=== PATIENT | male | born 1950 | race Caucasian/White ===

== ENCOUNTER 2021-09-26 20:50 | Inpatient (IN) ==
[2021-09-26 21:28] LABS: Basophils # 0.1 10*3/uL (0.0-0.2); Basophils % 0.4 % (0.0-0.8); Eosinophils # 0.1 10*3/uL (0.0-0.87); Eosinophils % 0.5 % (0.00-10.9); Hematocrit 36.8 VOL% (42.0-52.0); Hemoglobin 11.8 GM/DL (14.0-18.0); Immature Granulocytes % 0.7 %; Immature Granulocytes Absolute 0.12 #; Lymphocytes # 1.3 10*3/uL (1.4-4.0); Mean Corpuscular HGB Conc 32.1 GM/DL (32-36); Mean Corpuscular Volume 94.6 FL (87-102); Monocytes % 6.8 % (1.7-12.7); Neutrophils % 83.6 % (38.7-73.9); Platelet Count 357 T/CUMM (130-400); Red Blood Count 3.89 MC/CUMM (3.8-5.5); Red Cell Distribution Width 13.9 % (9.3-17.3); White Blood Count 16.8 T/CUMM (4-12)
[2021-09-26] MEDS ORDERED: ALBUTEROL/IPRATROPIUM 3 ML NEB RESP TX STA (21:35)
[2021-09-26 21:48] LABS: Albumin 2.7 G/DL (3.4-5.0); Bilirubin,Total 0.5 MG/DL (0.20-1.00); Calcium 8.7 MG/DL (8.5-10.1); Osmolality,Calculated 286.1 MOS/KG (273-304); Potassium 3.7 MMOL/L (3.5-5.1); Total Protein 6.3 G/DL (6.4-8.2)
[2021-09-26] MEDS ORDERED: hydrALAZINE 20 MG/1 ML VIAL IV STA (22:19)
[2021-09-26] MEDS ORDERED: LEVOFLOXACIN INJ 750 MG/150 ML PREMIX IV STA (22:24)
[2021-09-26] MEDS ORDERED: SODIUM CHLORIDE 0.9% 1,000 ML IV STA (22:24)
[2021-09-26 22:48] LABS: Ferritin 261.4 ng/mL (26-388)
[2021-09-26] MEDS ORDERED: LABETALOL 20 MG/4 ML SYRINGE IV ONE (23:48)
[2021-09-27] MEDS ORDERED: LABETALOL 100 MG/20 ML VIAL IV STA (00:01)
[2021-09-27] MEDS ORDERED: SIMETHICONE CHEW 125 MG TABLET PO PRN (03:54)
[2021-09-27] MEDS ORDERED: ONDANSETRON 4 MG/2 ML VIAL IV PRN (03:54)
[2021-09-27] MEDS ORDERED: methylPREDNISolone SOD SUC 125 MG/2 ML VIAL IV STA (03:54)
[2021-09-27] MEDS ORDERED: GLUCAGON 1 MG VIAL IM PRN (03:54)
[2021-09-27] MEDS ORDERED: DEXTROSE 10% 250 ML BAG IV PRN (04:47)
[2021-09-27] MEDS: hydrALAZINE 20 MG/1 ML VIAL IV PRN ×2 (04:55→12:55)
[2021-09-27 05:27] LABS: Basophils # 0.1 10*3/uL (0.0-0.2); Basophils % 0.4 % (0.0-0.8); Eosinophils % 0.2 % (0.00-10.9); Hematocrit 31.9 VOL% (42.0-52.0); Hemoglobin 10.6 GM/DL (14.0-18.0); Immature Granulocytes % 0.9 %; Immature Granulocytes Absolute 0.12 #; Lymphocytes # 1.1 10*3/uL (1.4-4.0); Lymphocytes % 7.6 % (21.2-54.2); Mean Corpuscular HGB Conc 33.2 GM/DL (32-36); Mean Corpuscular Volume 92.5 FL (87-102); Mean Platelet Volume 10.2 FL (9.6-12.0); Monocytes % 8.4 % (1.7-12.7); Neutrophils % 82.5 % (38.7-73.9); Platelet Count 297 T/CUMM (130-400); Red Blood Count 3.45 MC/CUMM (3.8-5.5); Red Cell Distribution Width 13.8 % (9.3-17.3); White Blood Count 13.9 T/CUMM (4-12)
[2021-09-27] MEDS ORDERED: LABETALOL 20 MG/4 ML SYRINGE IV ONE ×3 (05:32→09:36)
[2021-09-27] MEDS: PIPERACILLIN/TAZOBACTAM 3,375 MG in SODIUM CHLORIDE 0.9% 100 ML IV SCH ×2 (05:35→14:45)
[2021-09-27 05:36] LABS: Bacteria,Urine Occasional /HPF (Few); Mucus,Urine Occasional /LPF (Occasional); RBC,Urine 1 /HPF (0-4)
[2021-09-27 05:37] LABS: Bilirubin,Urine Negative (Negative); Blood, Urine Negative (Negative); Glucose,Urine (UA) Negative (Negative); Ketones,Urine Negative (Negative); Nitrite,Urine Negative (Negative); Protein,Urine Negative; Urine Appearance Clear (Clear); Urine Color Yellow (Yellow); Urine Specific Gravity > 1.030 (1.001-1.035); Urine Urobilinogen 0.2 EU/DL (<2.0); Urine pH 5.5 (4.5-8.0)
[2021-09-27 05:49] LABS: Calcium 8.1 MG/DL (8.5-10.1); Osmolality,Calculated 282.4 MOS/KG (273-304); Potassium 3.5 MMOL/L (3.5-5.1)
[2021-09-27 06:46] LABS: ABG Base Excess -2.7 MMOL/L (-2.5-2.5); ABG HCO3 22.1 MMOL/L (20-26); ABG Oxygen Saturation 96.8 % (95-100); ABG PCO2 30.1 MM HG (35-48); ABG PO2 92.4 MM HG (80-95); ABG TCO2 18.3 MMOL/L (23-27)
[2021-09-27] MEDS: ALBUTEROL 2.5 MG/3 ML NEB RESP TX SCH ×3 (07:25→19:24)
[2021-09-27] MEDS ORDERED: ALBUTEROL/IPRATROPIUM 3 ML NEB RESP TX PRN (07:25)
[2021-09-27] MEDS: DOCUSATE SODIUM 100 MG CAPSULE PO SCH ×2 (08:44→21:48)
[2021-09-27] MEDS: FUROSEMIDE 40 MG/4 ML VIAL IV SCH (08:44)
[2021-09-27] MEDS: ASPIRIN EC 81 MG TABLET PO SCH (08:44)
[2021-09-27] MEDS: ENOXAPARIN 40 MG/0.4 ML SYRINGE SUBCUT SCH (08:45)
[2021-09-27] MEDS: PANTOPRAZOLE 40 MG TABLET PO SCH (08:45)
[2021-09-27] MEDS: METOPROLOL SUCCINATE XL 50 MG TABLET PO SCH (08:45)
[2021-09-27] MEDS: VANCOMYCIN INJ 1,250 MG in SODIUM CHLORIDE 0.9% 250 ML IV SCH ×2 (09:55→21:34)
[2021-09-27] MEDS: methylPREDNISolone SOD SUC 40 MG/1 ML VIAL IV SCH ×2 (12:13→21:37)
[2021-09-27 17:24] LABS: ABG Base Excess -0.3 MMOL/L (-2.5-2.5); ABG HCO3 24.2 MMOL/L (20-26); ABG Oxygen Saturation 99.3 % (95-100); ABG PCO2 31.1 MM HG (35-48); ABG PH 7.468 (7.35-7.45); ABG TCO2 19.7 MMOL/L (23-27)
[2021-09-27] MEDS: FLUTICASONE/SALMETEROL 250-50 DISKUS 14 DOSE INH SCH ×2 (18:44→21:37)
[2021-09-27] MEDS: ALPRAZolam 0.5 MG TABLET PO SCH (21:36)
[2021-09-27] MEDS: DILTIAZEM 30 MG TABLET PO SCH (21:37)
[2021-09-27] MEDS: LEVOFLOXACIN INJ 750 MG/150 ML PREMIX IV SCH (23:45)
[2021-09-28] MEDS: ALBUTEROL 2.5 MG/3 ML NEB RESP TX SCH ×2 (00:12→07:00)
[2021-09-28] MEDS: PIPERACILLIN/TAZOBACTAM 3,375 MG in SODIUM CHLORIDE 0.9% 100 ML IV SCH ×2 (01:24→18:54)
[2021-09-28] MEDS: methylPREDNISolone SOD SUC 40 MG/1 ML VIAL IV SCH ×3 (03:22→21:08)
[2021-09-28 05:45] LABS: Basophils % 0.1 % (0.0-0.8); Hematocrit 32.3 VOL% (42.0-52.0); Hemoglobin 10.3 GM/DL (14.0-18.0); Immature Granulocytes % 0.7 %; Immature Granulocytes Absolute 0.12 #; Lymphocytes # 0.8 10*3/uL (1.4-4.0); Lymphocytes % 4.2 % (21.2-54.2); Mean Corpuscular HGB Conc 31.9 GM/DL (32-36); Mean Corpuscular Volume 93.9 FL (87-102); Mean Platelet Volume 10.3 FL (9.6-12.0); Monocytes % 5.2 % (1.7-12.7); Neutrophils % 89.8 % (38.7-73.9); Platelet Count 278 T/CUMM (130-400); Red Blood Count 3.44 MC/CUMM (3.8-5.5); White Blood Count 17.7 T/CUMM (4-12)
[2021-09-28 06:09] LABS: Calcium 8.6 MG/DL (8.5-10.1); Osmolality,Calculated 288.3 MOS/KG (273-304); Potassium 3.5 MMOL/L (3.5-5.1)
[2021-09-28 06:31] LABS: Lymphocytes 4 % (20-55); Platelet Estimate Normal; Segmented Neutrophils 93 % (50-85); Total Cells Counted 100
[2021-09-28] MEDS: ENOXAPARIN 40 MG/0.4 ML SYRINGE SUBCUT SCH (09:47)
[2021-09-28] MEDS: FUROSEMIDE 40 MG/4 ML VIAL IV SCH (09:47)
[2021-09-28] MEDS: FLUTICASONE/SALMETEROL 250-50 DISKUS 14 DOSE INH SCH ×2 (09:47→21:05)
[2021-09-28] MEDS: DILTIAZEM 30 MG TABLET PO SCH ×2 (09:50→21:03)
[2021-09-28] MEDS: ALPRAZolam 0.5 MG TABLET PO SCH ×2 (09:51→21:04)
[2021-09-28] MEDS: PANTOPRAZOLE 40 MG TABLET PO SCH (09:51)
[2021-09-28] MEDS: ASPIRIN EC 81 MG TABLET PO SCH (09:51)
[2021-09-28] MEDS: POTASSIUM CHLORIDE 20 MEQ TABLET PO SCH (09:52)
[2021-09-28] MEDS: METOPROLOL SUCCINATE XL 50 MG TABLET PO SCH (09:52)
[2021-09-28] MEDS: VANCOMYCIN INJ 1,250 MG in SODIUM CHLORIDE 0.9% 250 ML IV SCH ×2 (10:13→23:39)
[2021-09-28] MEDS: DOCUSATE SODIUM 100 MG CAPSULE PO SCH ×2 (10:14→21:09)
[2021-09-28 12:02] LABS: ABG Base Excess 0.8 MMOL/L (-2.5-2.5); ABG Oxygen Saturation 92.1 % (95-100); ABG PCO2 38.4 MM HG (35-48); ABG PH 7.424 (7.35-7.45); ABG PO2 66.5 MM HG (80-95); ABG TCO2 22.6 MMOL/L (23-27)
[2021-09-28] MEDS: LEVALBUTEROL 1.25 MG/3 ML NEB RESP TX SCH ×2 (14:51→18:00)
[2021-09-28] MEDS: LEVOFLOXACIN INJ 750 MG/150 ML PREMIX IV SCH (21:08)
[2021-09-29] MEDS: LEVALBUTEROL 1.25 MG/3 ML NEB RESP TX SCH ×2 (00:06→07:40)
[2021-09-29 04:26] LABS: ABG HCO3 24.1 MMOL/L (20-26); ABG Oxygen Saturation 81.5 % (95-100); ABG PCO2 36.3 MM HG (35-48); ABG PH 7.427 (7.35-7.45); ABG PO2 50.1 MM HG (80-95); ABG TCO2 21.6 MMOL/L (23-27); Allen Test Positive; Pt O2 Delivery Device Other
[2021-09-29] MEDS: PIPERACILLIN/TAZOBACTAM 3,375 MG in SODIUM CHLORIDE 0.9% 100 ML IV SCH ×4 (05:07→21:31)
[2021-09-29] MEDS: methylPREDNISolone SOD SUC 40 MG/1 ML VIAL IV SCH ×4 (05:08→22:59)
[2021-09-29 06:10] LABS: Basophils % 0.1 % (0.0-0.8); Hematocrit 31.5 VOL% (42.0-52.0); Hemoglobin 10.1 GM/DL (14.0-18.0); Immature Granulocytes Absolute 0.17 #; Lymphocytes # 0.7 10*3/uL (1.4-4.0); Mean Corpuscular HGB Conc 32.1 GM/DL (32-36); Mean Corpuscular Volume 94.3 FL (87-102); Mean Platelet Volume 10.3 FL (9.6-12.0); Monocytes % 5.7 % (1.7-12.7); Neutrophils % 89.2 % (38.7-73.9); Platelet Count 213 T/CUMM (130-400); Red Blood Count 3.34 MC/CUMM (3.8-5.5); Red Cell Distribution Width 14.1 % (9.3-17.3); White Blood Count 16.8 T/CUMM (4-12)
[2021-09-29 06:51] LABS: Calcium 8.5 MG/DL (8.5-10.1); Osmolality,Calculated 296.1 MOS/KG (273-304); Potassium 3.7 MMOL/L (3.5-5.1)
[2021-09-29 07:54] LABS: Lymphocytes 1 % (20-55); Segmented Neutrophils 96 % (50-85); Total Cells Counted 100
[2021-09-29 07:55] LABS: Anisocytosis 1+
[2021-09-29 07:56] LABS: Elliptocytes Few; Platelet Estimate Normal; Polychromasia Slight; Schistocytes Slight; Target Cells Few
[2021-09-29] MEDS: METOPROLOL SUCCINATE XL 50 MG TABLET PO SCH (09:35)
[2021-09-29] MEDS: DILTIAZEM 30 MG TABLET PO SCH ×3 (09:35→21:49)
[2021-09-29] MEDS: ALPRAZolam 0.5 MG TABLET PO SCH (09:36)
[2021-09-29] MEDS: ENOXAPARIN 40 MG/0.4 ML SYRINGE SUBCUT SCH (09:37)
[2021-09-29] MEDS: POTASSIUM CHLORIDE 20 MEQ TABLET PO SCH (09:37)
[2021-09-29] MEDS: FUROSEMIDE 40 MG/4 ML VIAL IV SCH ×2 (09:37→16:38)
[2021-09-29] MEDS: ASPIRIN EC 81 MG TABLET PO SCH (09:37)
[2021-09-29] MEDS: PANTOPRAZOLE 40 MG TABLET PO SCH (09:37)
[2021-09-29] MEDS: FLUTICASONE/SALMETEROL 250-50 DISKUS 14 DOSE INH SCH ×2 (09:38→21:34)
[2021-09-29] MEDS: DOCUSATE SODIUM 100 MG CAPSULE PO SCH ×2 (09:38→21:33)
[2021-09-29 10:49] LABS: ABG Base Excess 1.4 MMOL/L (-2.5-2.5); ABG HCO3 25.3 MMOL/L (20-26); ABG Oxygen Saturation 80.5 % (95-100); ABG PH 7.426 (7.35-7.45); ABG PO2 51.5 MM HG (80-95); ABG TCO2 23.2 MMOL/L (23-27)
[2021-09-29 12:15] LABS: Bacteria,Urine Occasional /HPF (Few); Hyaline Casts,Urine 6 /LPF (0-3); Mucus,Urine Occasional /LPF (Occasional); RBC,Urine 1 /HPF (0-4); Squamous Epithelial Cell,Urine Occasional /HPF (0-10)
[2021-09-29 12:16] LABS: Urine Appearance Clear (Clear); Urine Color Light Yellow (Yellow)
[2021-09-29 12:17] LABS: Glucose,Urine (UA) Negative (Negative); Ketones,Urine Negative (Negative); Protein,Urine Negative; Urine Specific Gravity 1.015 (1.001-1.035)
[2021-09-29 12:18] LABS: Bilirubin,Urine Negative (Negative); Blood, Urine Negative (Negative); Nitrite,Urine Negative (Negative); Urine Urobilinogen < 2.0 EU/DL (<2.0)
[2021-09-29] MEDS: VANCOMYCIN INJ 1,250 MG in SODIUM CHLORIDE 0.9% 250 ML IV SCH ×2 (12:41→21:35)
[2021-09-29] MEDS ORDERED: ALBUTEROL/IPRATROPIUM 3 ML NEB RESP TX SCH (13:00)
[2021-09-29] MEDS: hydrALAZINE 20 MG/1 ML VIAL IV PRN (15:21)
[2021-09-30] MEDS: methylPREDNISolone SOD SUC 40 MG/1 ML VIAL IV SCH ×4 (05:42→23:29)
[2021-09-30] MEDS: PIPERACILLIN/TAZOBACTAM 3,375 MG in SODIUM CHLORIDE 0.9% 100 ML IV SCH (05:42)
[2021-09-30 06:06] LABS: Basophils % 0.1 % (0.0-0.8); Hemoglobin 10.8 GM/DL (14.0-18.0); Immature Granulocytes % 1.1 %; Immature Granulocytes Absolute 0.16 #; Lymphocytes # 0.7 10*3/uL (1.4-4.0); Lymphocytes % 4.6 % (21.2-54.2); Mean Corpuscular HGB Conc 31.8 GM/DL (32-36); Mean Corpuscular Volume 95.5 FL (87-102); Mean Platelet Volume 10.3 FL (9.6-12.0); Monocytes % 5.4 % (1.7-12.7); Neutrophils % 88.8 % (38.7-73.9); Platelet Count 153 T/CUMM (130-400); Red Blood Count 3.56 MC/CUMM (3.8-5.5); White Blood Count 15.1 T/CUMM (4-12)
[2021-09-30 06:44] LABS: Band Neutrophils 2 % (0-10); Lymphocytes 4 % (20-55); Segmented Neutrophils 90 % (50-85); Total Cells Counted 100
[2021-09-30 06:45] LABS: Hypochromia 1+; Microcytosis 1+; Ovalocytes Slight; Platelet Estimate Adequate; Target Cells Slight
[2021-09-30 07:01] LABS: Calcium 8.6 MG/DL (8.5-10.1); Osmolality,Calculated 304.7 MOS/KG (273-304); Potassium 3.6 MMOL/L (3.5-5.1)
[2021-09-30] MEDS: MEROPENEM 500 MG in SODIUM CHLORIDE 0.9% 100 ML IV SCH ×3 (09:53→20:40)
[2021-09-30] MEDS: FUROSEMIDE 40 MG/4 ML VIAL IV SCH ×2 (09:53→17:16)
[2021-09-30] MEDS: ENOXAPARIN 40 MG/0.4 ML SYRINGE SUBCUT SCH (09:54)
[2021-09-30] MEDS: ASPIRIN EC 81 MG TABLET PO SCH (09:54)
[2021-09-30] MEDS: POTASSIUM CHLORIDE 20 MEQ TABLET PO SCH (09:54)
[2021-09-30] MEDS: METOPROLOL SUCCINATE XL 50 MG TABLET PO SCH (09:55)
[2021-09-30] MEDS: DOCUSATE SODIUM 100 MG CAPSULE PO SCH ×2 (09:55→20:41)
[2021-09-30] MEDS: DILTIAZEM 30 MG TABLET PO SCH ×2 (09:55→20:39)
[2021-09-30] MEDS: PANTOPRAZOLE 40 MG TABLET PO SCH (09:55)
[2021-09-30] MEDS: FLUTICASONE/SALMETEROL 250-50 DISKUS 14 DOSE INH SCH ×2 (09:56→20:41)
[2021-10-01] MEDS: MEROPENEM 500 MG in SODIUM CHLORIDE 0.9% 100 ML IV SCH ×4 (03:26→22:15)
[2021-10-01 04:08] LABS: ABG Base Excess 6.7 MMOL/L (-2.5-2.5); ABG HCO3 30.4 MMOL/L (20-26); ABG Oxygen Saturation 94.3 % (95-100); ABG PCO2 40.9 MM HG (35-48); ABG PH 7.484 (7.35-7.45); ABG PO2 73.5 MM HG (80-95); ABG TCO2 27.5 MMOL/L (23-27)
[2021-10-01] MEDS: methylPREDNISolone SOD SUC 40 MG/1 ML VIAL IV SCH ×3 (04:08→16:55)
[2021-10-01 04:36] LABS: Basophils % 0.1 % (0.0-0.8); Hematocrit 32.7 VOL% (42.0-52.0); Hemoglobin 10.6 GM/DL (14.0-18.0); Immature Granulocytes % 1.1 %; Immature Granulocytes Absolute 0.14 #; Lymphocytes # 0.6 10*3/uL (1.4-4.0); Lymphocytes % 4.5 % (21.2-54.2); Mean Corpuscular HGB Conc 32.4 GM/DL (32-36); Mean Corpuscular Volume 93.4 FL (87-102); Mean Platelet Volume 10.4 FL (9.6-12.0); Monocytes % 5.2 % (1.7-12.7); Neutrophils % 89.1 % (38.7-73.9); Platelet Count 127 T/CUMM (130-400); White Blood Count 12.4 T/CUMM (4-12)
[2021-10-01 04:59] LABS: Calcium 8.8 MG/DL (8.5-10.1); Osmolality,Calculated 302.8 MOS/KG (273-304); Potassium 3.4 MMOL/L (3.5-5.1)
[2021-10-01 05:00] LABS: Hypochromia Slight; Lymphocytes 9 % (20-55); Microcytosis 1+; Ovalocytes Slight; Segmented Neutrophils 85 % (50-85); Total Cells Counted 100
[2021-10-01 05:01] LABS: Platelet Estimate Adequate
[2021-10-01] MEDS: FUROSEMIDE 40 MG/4 ML VIAL IV SCH ×2 (08:55→16:55)
[2021-10-01] MEDS: POTASSIUM CHLORIDE 20 MEQ TABLET PO SCH (09:05)
[2021-10-01] MEDS: DILTIAZEM 30 MG TABLET PO SCH ×2 (09:05→22:12)
[2021-10-01] MEDS: METOPROLOL SUCCINATE XL 50 MG TABLET PO SCH (09:05)
[2021-10-01] MEDS: ASPIRIN EC 81 MG TABLET PO SCH (09:05)
[2021-10-01] MEDS: PANTOPRAZOLE 40 MG TABLET PO SCH (09:05)
[2021-10-01] MEDS: FLUTICASONE/SALMETEROL 250-50 DISKUS 14 DOSE INH SCH ×2 (09:10→22:12)
[2021-10-01] MEDS: ENOXAPARIN 40 MG/0.4 ML SYRINGE SUBCUT SCH (09:10)
[2021-10-01] MEDS: DOCUSATE SODIUM 100 MG CAPSULE PO SCH ×2 (10:23→22:12)
[2021-10-01] MEDS: ACETAMINOPHEN 325 MG TABLET PO PRN (13:17)
[2021-10-01] MEDS ORDERED: POTASSIUM CHLORIDE 20 MEQ TABLET PO ONE (17:00)
[2021-10-02] MEDS: methylPREDNISolone SOD SUC 40 MG/1 ML VIAL IV SCH ×3 (01:08→16:39)
[2021-10-02] MEDS: ALPRAZolam 0.25 MG TABLET PO PRN ×2 (01:08→21:37)
[2021-10-02] MEDS: guaiFENesin/DM ER 600-30 MG TABLET PO PRN ×2 (02:29→21:38)
[2021-10-02 03:42] LABS: ABG Base Excess 6.8 MMOL/L (-2.5-2.5); ABG HCO3 30.5 MMOL/L (20-26); ABG Oxygen Saturation 92.6 % (95-100); ABG PCO2 40.2 MM HG (35-48); ABG PH 7.498 (7.35-7.45); ABG PO2 67.1 MM HG (80-95); ABG TCO2 31.7 MMOL/L (23-27)
[2021-10-02] MEDS: MEROPENEM 500 MG in SODIUM CHLORIDE 0.9% 100 ML IV SCH ×4 (04:02→21:37)
[2021-10-02] MEDS: ACETAMINOPHEN 325 MG TABLET PO PRN (04:22)
[2021-10-02 05:52] LABS: Basophils % 0.1 % (0.0-0.8); Hematocrit 32.4 VOL% (42.0-52.0); Hemoglobin 10.5 GM/DL (14.0-18.0); Immature Granulocytes % 1.8 %; Immature Granulocytes Absolute 0.26 #; Lymphocytes # 0.8 10*3/uL (1.4-4.0); Lymphocytes % 5.1 % (21.2-54.2); Mean Corpuscular HGB Conc 32.4 GM/DL (32-36); Mean Corpuscular Volume 92.6 FL (87-102); Mean Platelet Volume 11.2 FL (9.6-12.0); Monocytes % 5.4 % (1.7-12.7); Neutrophils % 87.6 % (38.7-73.9); Platelet Count 119 T/CUMM (130-400); Red Cell Distribution Width 13.7 % (9.3-17.3); White Blood Count 14.8 T/CUMM (4-12)
[2021-10-02 05:53] LABS: Calcium 8.5 MG/DL (8.5-10.1); Osmolality,Calculated 290.5 MOS/KG (273-304); Potassium 4.3 MMOL/L (3.5-5.1)
[2021-10-02] MEDS: METOPROLOL SUCCINATE XL 50 MG TABLET PO SCH (08:50)
[2021-10-02] MEDS: ASPIRIN EC 81 MG TABLET PO SCH (08:50)
[2021-10-02] MEDS: PANTOPRAZOLE 40 MG TABLET PO SCH (08:50)
[2021-10-02] MEDS: POTASSIUM CHLORIDE 20 MEQ TABLET PO SCH (08:51)
[2021-10-02] MEDS: DILTIAZEM 30 MG TABLET PO SCH ×2 (08:51→21:38)
[2021-10-02] MEDS: DOCUSATE SODIUM 100 MG CAPSULE PO SCH ×2 (08:51→21:38)
[2021-10-02] MEDS: FUROSEMIDE 40 MG/4 ML VIAL IV SCH ×2 (08:52→16:39)
[2021-10-02] MEDS: FLUTICASONE/SALMETEROL 250-50 DISKUS 14 DOSE INH SCH ×2 (08:57→21:37)
[2021-10-02] MEDS: FONDAPARINUX 2.5 MG/0.5 ML SYRINGE SUBCUT SCH (11:43)
[2021-10-03] MEDS: ALBUTEROL/IPRATROPIUM 3 ML NEB RESP TX SCH ×4 (01:05→19:24)
[2021-10-03] MEDS: methylPREDNISolone SOD SUC 40 MG/1 ML VIAL IV SCH ×3 (01:07→21:19)
[2021-10-03] MEDS: MEROPENEM 500 MG in SODIUM CHLORIDE 0.9% 100 ML IV SCH ×4 (03:10→21:19)
[2021-10-03 05:37] LABS: Basophils # 0.1 10*3/uL (0.0-0.2); Basophils % 0.3 % (0.0-0.8); Hematocrit 34.6 VOL% (42.0-52.0); Hemoglobin 11.2 GM/DL (14.0-18.0); Immature Granulocytes % 2.4 %; Immature Granulocytes Absolute 0.39 #; Lymphocytes # 0.7 10*3/uL (1.4-4.0); Lymphocytes % 4.3 % (21.2-54.2); Mean Corpuscular HGB Conc 32.4 GM/DL (32-36); Mean Platelet Volume 11.2 FL (9.6-12.0); Monocytes % 4.1 % (1.7-12.7); Neutrophils % 88.9 % (38.7-73.9); Platelet Count 99 T/CUMM (130-400); Red Blood Count 3.76 MC/CUMM (3.8-5.5); Red Cell Distribution Width 13.5 % (9.3-17.3); White Blood Count 16.5 T/CUMM (4-12)
[2021-10-03 06:03] LABS: Calcium 8.1 MG/DL (8.5-10.1); Osmolality,Calculated 296.3 MOS/KG (273-304); Potassium 4.1 MMOL/L (3.5-5.1)
[2021-10-03 06:04] LABS: Hypochromia Slight; Lymphocytes 3 % (20-55); Microcytosis Slight; Platelet Estimate Decreased; Segmented Neutrophils 94 % (50-85); Total Cells Counted 100
[2021-10-03] MEDS: DOCUSATE SODIUM 100 MG CAPSULE PO SCH ×2 (09:13→21:18)
[2021-10-03] MEDS: DILTIAZEM 30 MG TABLET PO SCH ×2 (09:13→21:19)
[2021-10-03] MEDS: POTASSIUM CHLORIDE 20 MEQ TABLET PO SCH (09:14)
[2021-10-03] MEDS: PANTOPRAZOLE 40 MG TABLET PO SCH (09:14)
[2021-10-03] MEDS: METOPROLOL SUCCINATE XL 50 MG TABLET PO SCH (09:14)
[2021-10-03] MEDS: FUROSEMIDE 40 MG/4 ML VIAL IV SCH (09:14)
[2021-10-03] MEDS: FLUTICASONE/SALMETEROL 250-50 DISKUS 14 DOSE INH SCH ×2 (09:17→21:20)
[2021-10-03] MEDS: FONDAPARINUX 2.5 MG/0.5 ML SYRINGE SUBCUT SCH (12:11)
[2021-10-03] MEDS: ASPIRIN EC 81 MG TABLET PO SCH (12:11)
[2021-10-03] MEDS: ALPRAZolam 0.25 MG TABLET PO PRN (21:18)
[2021-10-04] MEDS: ALBUTEROL/IPRATROPIUM 3 ML NEB RESP TX SCH ×3 (00:12→21:00)
[2021-10-04] MEDS: MEROPENEM 500 MG in SODIUM CHLORIDE 0.9% 100 ML IV SCH ×4 (03:12→20:50)
[2021-10-04 06:24] LABS: Basophils # 0.1 10*3/uL (0.0-0.2); Basophils % 0.3 % (0.0-0.8); Hematocrit 33.7 VOL% (42.0-52.0); Hemoglobin 11.1 GM/DL (14.0-18.0); Immature Granulocytes % 3.6 %; Immature Granulocytes Absolute 0.63 #; Lymphocytes # 0.6 10*3/uL (1.4-4.0); Lymphocytes % 3.6 % (21.2-54.2); Mean Corpuscular HGB Conc 32.9 GM/DL (32-36); Mean Corpuscular Volume 91.6 FL (87-102); Mean Platelet Volume 12.1 FL (9.6-12.0); Monocytes % 4.5 % (1.7-12.7); Platelet Count 91 T/CUMM (130-400); Red Blood Count 3.68 MC/CUMM (3.8-5.5); Red Cell Distribution Width 13.5 % (9.3-17.3); White Blood Count 17.7 T/CUMM (4-12)
[2021-10-04 06:40] LABS: Calcium 8.1 MG/DL (8.5-10.1); Osmolality,Calculated 287.8 MOS/KG (273-304); Potassium 4.2 MMOL/L (3.5-5.1)
[2021-10-04 07:30] LABS: Lymphocytes 3 % (20-55); Segmented Neutrophils 93 % (50-85); Total Cells Counted 100
[2021-10-04 07:31] LABS: Anisocytosis 1+; Platelet Estimate Adequate
[2021-10-04 07:32] LABS: Helmet Cells Few; Polychromasia Slight; Target Cells Slight
[2021-10-04] MEDS: ASPIRIN EC 81 MG TABLET PO SCH (09:27)
[2021-10-04] MEDS: DILTIAZEM 30 MG TABLET PO SCH ×2 (09:27→20:46)
[2021-10-04] MEDS: POTASSIUM CHLORIDE 20 MEQ TABLET PO SCH (09:29)
[2021-10-04] MEDS: METOPROLOL SUCCINATE XL 50 MG TABLET PO SCH (09:29)
[2021-10-04] MEDS: PANTOPRAZOLE 40 MG TABLET PO SCH (09:29)
[2021-10-04] MEDS: DOCUSATE SODIUM 100 MG CAPSULE PO SCH ×2 (09:29→20:46)
[2021-10-04] MEDS: FLUTICASONE/SALMETEROL 250-50 DISKUS 14 DOSE INH SCH ×2 (09:30→20:50)
[2021-10-04] MEDS: methylPREDNISolone SOD SUC 40 MG/1 ML VIAL IV SCH (09:37)
[2021-10-04] MEDS: AZITHROMYCIN 250 MG TABLET PO SCH (10:26)
[2021-10-04] MEDS: FONDAPARINUX 2.5 MG/0.5 ML SYRINGE SUBCUT SCH (12:49)
[2021-10-04] MEDS ORDERED: FUROSEMIDE 40 MG/4 ML VIAL IV ONE (13:00)
[2021-10-04 14:32] LABS: Glucose,Urine (UA) Negative (Negative); Hyaline Casts,Urine 1 /LPF (0-3); Mucus,Urine Occasional /LPF (Occasional); Protein,Urine Negative; RBC,Urine 2 /HPF (0-4); Urine Appearance Clear (Clear); Urine Color Yellow (Yellow)
[2021-10-04 14:33] LABS: Bilirubin,Urine Negative (Negative); Blood, Urine Negative (Negative); Ketones,Urine Negative (Negative); Nitrite,Urine Negative (Negative); Urine Urobilinogen 0.2 EU/DL (<2.0)
[2021-10-04] MEDS: ALPRAZolam 0.25 MG TABLET PO PRN (20:46)
[2021-10-05] MEDS: ALBUTEROL/IPRATROPIUM 3 ML NEB RESP TX SCH ×4 (01:30→19:40)
[2021-10-05] MEDS: MEROPENEM 500 MG in SODIUM CHLORIDE 0.9% 100 ML IV SCH ×4 (03:24→20:52)
[2021-10-05 08:48] LABS: Basophils # 0.1 10*3/uL (0.0-0.2); Basophils % 0.3 % (0.0-0.8); Eosinophils # 0.2 10*3/uL (0.0-0.87); Eosinophils % 1.1 % (0.00-10.9); Hematocrit 38.5 VOL% (42.0-52.0); Hemoglobin 12.3 GM/DL (14.0-18.0); Immature Granulocytes % 4.3 %; Immature Granulocytes Absolute 0.97 #; Mean Corpuscular HGB Conc 31.9 GM/DL (32-36); Mean Corpuscular Volume 93.2 FL (87-102); Mean Platelet Volume 12.1 FL (9.6-12.0); Monocytes % 4.7 % (1.7-12.7); Neutrophils % 80.6 % (38.7-73.9); Platelet Count 114 T/CUMM (130-400); Red Blood Count 4.13 MC/CUMM (3.8-5.5); Red Cell Distribution Width 13.6 % (9.3-17.3); White Blood Count 22.5 T/CUMM (4-12)
[2021-10-05 09:12] LABS: Eosinophils 1 % (0-10); Hypochromia Slight; Lymphocytes 10 % (20-55); Microcytosis Slight; Platelet Estimate Decreased; Segmented Neutrophils 85 % (50-85); Total Cells Counted 100
[2021-10-05 09:38] LABS: Albumin 2.3 G/DL (3.4-5.0); Bilirubin,Total 0.8 MG/DL (0.20-1.00); Calcium 8.3 MG/DL (8.5-10.1); Osmolality,Calculated 285.8 MOS/KG (273-304); Potassium 4.2 MMOL/L (3.5-5.1); Total Protein 5.4 G/DL (6.4-8.2)
[2021-10-05] MEDS: POTASSIUM CHLORIDE 20 MEQ TABLET PO SCH (09:52)
[2021-10-05] MEDS: METOPROLOL SUCCINATE XL 50 MG TABLET PO SCH (09:53)
[2021-10-05] MEDS: DILTIAZEM 30 MG TABLET PO SCH ×2 (09:53→20:52)
[2021-10-05] MEDS: AZITHROMYCIN 250 MG TABLET PO SCH (09:53)
[2021-10-05] MEDS: ASPIRIN EC 81 MG TABLET PO SCH (09:53)
[2021-10-05] MEDS: PANTOPRAZOLE 40 MG TABLET PO SCH (09:53)
[2021-10-05] MEDS: methylPREDNISolone SOD SUC 40 MG/1 ML VIAL IV SCH (09:54)
[2021-10-05] MEDS: FLUTICASONE/SALMETEROL 250-50 DISKUS 14 DOSE INH SCH ×2 (09:55→20:55)
[2021-10-05] MEDS: DOCUSATE SODIUM 100 MG CAPSULE PO SCH ×2 (10:01→20:52)
[2021-10-05] MEDS: FONDAPARINUX 2.5 MG/0.5 ML SYRINGE SUBCUT SCH (12:30)
[2021-10-06] MEDS: ALBUTEROL/IPRATROPIUM 3 ML NEB RESP TX SCH ×4 (01:57→19:35)
[2021-10-06] MEDS: MEROPENEM 500 MG in SODIUM CHLORIDE 0.9% 100 ML IV SCH ×4 (02:15→20:45)
[2021-10-06] MEDS: ACETAMINOPHEN 325 MG TABLET PO PRN ×2 (02:45→20:46)
[2021-10-06 05:32] LABS: Basophils # 0.1 10*3/uL (0.0-0.2); Basophils % 0.4 % (0.0-0.8); Eosinophils # 0.2 10*3/uL (0.0-0.87); Eosinophils % 0.6 % (0.00-10.9); Hematocrit 34.5 VOL% (42.0-52.0); Hemoglobin 11.2 GM/DL (14.0-18.0); Immature Granulocytes % 3.7 %; Immature Granulocytes Absolute 0.94 #; Lymphocytes # 1.2 10*3/uL (1.4-4.0); Lymphocytes % 4.8 % (21.2-54.2); Mean Corpuscular HGB Conc 32.5 GM/DL (32-36); Mean Corpuscular Volume 92.5 FL (87-102); Mean Platelet Volume 12.3 FL (9.6-12.0); Monocytes % 4.1 % (1.7-12.7); Neutrophils % 86.4 % (38.7-73.9); Platelet Count 106 T/CUMM (130-400); Red Blood Count 3.73 MC/CUMM (3.8-5.5); Red Cell Distribution Width 13.7 % (9.3-17.3); White Blood Count 25.1 T/CUMM (4-12)
[2021-10-06 05:49] LABS: Calcium 7.9 MG/DL (8.5-10.1); Osmolality,Calculated 288.4 MOS/KG (273-304); Potassium 4.1 MMOL/L (3.5-5.1)
[2021-10-06 05:55] LABS: Lymphocytes 5 % (20-55); Segmented Neutrophils 90 % (50-85); Total Cells Counted 100
[2021-10-06] MEDS: ASPIRIN EC 81 MG TABLET PO SCH (08:33)
[2021-10-06] MEDS: PANTOPRAZOLE 40 MG TABLET PO SCH (08:33)
[2021-10-06] MEDS: DILTIAZEM 30 MG TABLET PO SCH ×2 (08:34→20:46)
[2021-10-06] MEDS: METOPROLOL SUCCINATE XL 50 MG TABLET PO SCH (08:34)
[2021-10-06] MEDS: POTASSIUM CHLORIDE 20 MEQ TABLET PO SCH (08:34)
[2021-10-06] MEDS: AZITHROMYCIN 250 MG TABLET PO SCH (08:34)
[2021-10-06] MEDS: methylPREDNISolone SOD SUC 40 MG/1 ML VIAL IV SCH ×3 (08:39→20:47)
[2021-10-06] MEDS: DOCUSATE SODIUM 100 MG CAPSULE PO SCH ×2 (08:40→20:45)
[2021-10-06] MEDS ORDERED: FUROSEMIDE 40 MG/4 ML VIAL IV ONE (10:42)
[2021-10-06] MEDS: FLUTICASONE/SALMETEROL 250-50 DISKUS 14 DOSE INH SCH ×2 (11:37→20:50)
[2021-10-06] MEDS: FONDAPARINUX 2.5 MG/0.5 ML SYRINGE SUBCUT SCH (12:54)
[2021-10-06] MEDS: MENTHOL/ZINC OXIDE OINT 71 GM JAR TOP SCH ×2 (17:07→21:31)
[2021-10-06] MEDS: NYSTATIN POWDER 15 GM BOTTLE TOP SCH ×2 (17:07→21:31)
[2021-10-06] MEDS: hydrOXYzine HCL 25 MG TABLET PO PRN (20:45)
[2021-10-06] MEDS: guaiFENesin/DM ER 600-30 MG TABLET PO PRN (20:45)
[2021-10-06] MEDS: MELATONIN 3 MG TABLET PO PRN (20:46)
[2021-10-07] MEDS: ALBUTEROL/IPRATROPIUM 3 ML NEB RESP TX SCH ×3 (00:30→19:55)
[2021-10-07] MEDS: methylPREDNISolone SOD SUC 40 MG/1 ML VIAL IV SCH ×3 (03:38→18:02)
[2021-10-07] MEDS: MEROPENEM 500 MG in SODIUM CHLORIDE 0.9% 100 ML IV SCH ×3 (03:42→15:50)
[2021-10-07 05:39] LABS: Basophils % 0.2 % (0.0-0.8); Hematocrit 33.6 VOL% (42.0-52.0); Immature Granulocytes % 3.2 %; Immature Granulocytes Absolute 0.81 #; Lymphocytes # 0.6 10*3/uL (1.4-4.0); Lymphocytes % 2.5 % (21.2-54.2); Mean Corpuscular HGB Conc 32.7 GM/DL (32-36); Mean Corpuscular Volume 91.3 FL (87-102); Mean Platelet Volume 12.5 FL (9.6-12.0); Monocytes % 2.6 % (1.7-12.7); Neutrophils % 91.5 % (38.7-73.9); Red Blood Count 3.68 MC/CUMM (3.8-5.5); Red Cell Distribution Width 13.7 % (9.3-17.3); White Blood Count 25.1 T/CUMM (4-12)
[2021-10-07 05:42] LABS: Platelet Count 98 T/CUMM (130-400)
[2021-10-07 05:58] LABS: Calcium 8.4 MG/DL (8.5-10.1); Osmolality,Calculated 286.8 MOS/KG (273-304); Potassium 4.4 MMOL/L (3.5-5.1)
[2021-10-07 05:59] LABS: Hypochromia Slight; Microcytosis Slight; Platelet Estimate Decreased; Segmented Neutrophils 94 % (50-85); Total Cells Counted 100
[2021-10-07] MEDS: ASPIRIN EC 81 MG TABLET PO SCH (09:53)
[2021-10-07] MEDS: POTASSIUM CHLORIDE 20 MEQ TABLET PO SCH (09:53)
[2021-10-07] MEDS: DILTIAZEM 30 MG TABLET PO SCH ×2 (09:53→21:33)
[2021-10-07] MEDS: AZITHROMYCIN 250 MG TABLET PO SCH (09:53)
[2021-10-07] MEDS: METOPROLOL SUCCINATE XL 50 MG TABLET PO SCH (09:53)
[2021-10-07] MEDS: FLUTICASONE/SALMETEROL 250-50 DISKUS 14 DOSE INH SCH ×2 (09:54→21:33)
[2021-10-07] MEDS: MENTHOL/ZINC OXIDE OINT 71 GM JAR TOP SCH ×3 (09:54→21:33)
[2021-10-07] MEDS: PANTOPRAZOLE 40 MG TABLET PO SCH (09:54)
[2021-10-07] MEDS: DOCUSATE SODIUM 100 MG CAPSULE PO SCH ×2 (09:54→21:33)
[2021-10-07] MEDS: NYSTATIN POWDER 15 GM BOTTLE TOP SCH ×2 (10:14→21:33)
[2021-10-07] MEDS: FONDAPARINUX 2.5 MG/0.5 ML SYRINGE SUBCUT SCH ×2 (11:10→11:37)
[2021-10-07 21:16] LABS: Mucus,Urine Occasional /LPF (Occasional); RBC,Urine 1 /HPF (0-4); Uric Acid Crystals,Urine Occasional /HPF (<1)
[2021-10-07 21:17] LABS: Bilirubin,Urine Negative (Negative); Blood, Urine Negative (Negative); Glucose,Urine (UA) Negative (Negative); Ketones,Urine Negative (Negative); Nitrite,Urine Negative (Negative); Protein,Urine Negative; Urine Appearance Clear (Clear); Urine Color Yellow (Yellow); Urine Specific Gravity 1.025 (1.001-1.035); Urine Urobilinogen 0.2 EU/DL (<2.0); Urine pH 5.5 (4.5-8.0)
[2021-10-07] MEDS: TAMSULOSIN 0.4 MG CAPSULE PO SCH (21:33)
[2021-10-07] MEDS: PRAMIPEXOLE 0.25 MG TABLET PO SCH (21:34)
[2021-10-07] MEDS: MELATONIN 3 MG TABLET PO PRN (21:41)
[2021-10-07] MEDS: hydrOXYzine HCL 25 MG TABLET PO PRN (21:41)
[2021-10-08] MEDS: DOCUSATE SODIUM 100 MG CAPSULE PO SCH ×3 (00:08→21:38)
[2021-10-08] MEDS: ALBUTEROL/IPRATROPIUM 3 ML NEB RESP TX SCH ×4 (01:03→19:45)
[2021-10-08] MEDS: methylPREDNISolone SOD SUC 40 MG/1 ML VIAL IV SCH ×3 (03:20→18:17)
[2021-10-08 05:59] LABS: Basophils # 0.1 10*3/uL (0.0-0.2); Basophils % 0.2 % (0.0-0.8); Hematocrit 35.8 VOL% (42.0-52.0); Hemoglobin 11.3 GM/DL (14.0-18.0); Immature Granulocytes % 2.9 %; Lymphocytes # 0.6 10*3/uL (1.4-4.0); Lymphocytes % 2.5 % (21.2-54.2); Mean Corpuscular HGB Conc 31.6 GM/DL (32-36); Mean Corpuscular Volume 93.7 FL (87-102); Mean Platelet Volume 12.5 FL (9.6-12.0); Monocytes % 4.1 % (1.7-12.7); Neutrophils % 90.3 % (38.7-73.9); Platelet Count 130 T/CUMM (130-400); Red Blood Count 3.82 MC/CUMM (3.8-5.5); White Blood Count 24.1 T/CUMM (4-12)
[2021-10-08 06:17] LABS: Calcium 8.3 MG/DL (8.5-10.1); Osmolality,Calculated 289.5 MOS/KG (273-304); Potassium 5.6 MMOL/L (3.5-5.1)
[2021-10-08 06:21] LABS: Hypochromia Slight; Lymphocytes 3 % (20-55); Microcytosis Slight; Platelet Estimate Normal; Segmented Neutrophils 96 % (50-85); Total Cells Counted 100
[2021-10-08] MEDS ORDERED: SODIUM POLYSTYRENE SULFATE 15 GM/60 ML BOTTLE PO ONE (09:00)
[2021-10-08] MEDS: AZITHROMYCIN 250 MG TABLET PO SCH (09:21)
[2021-10-08] MEDS: DILTIAZEM 30 MG TABLET PO SCH ×2 (09:21→21:33)
[2021-10-08] MEDS: PANTOPRAZOLE 40 MG TABLET PO SCH (09:21)
[2021-10-08] MEDS: ASPIRIN EC 81 MG TABLET PO SCH (09:22)
[2021-10-08] MEDS: FLUTICASONE/SALMETEROL 250-50 DISKUS 14 DOSE INH SCH ×2 (09:22→21:37)
[2021-10-08] MEDS: METOPROLOL SUCCINATE XL 50 MG TABLET PO SCH (09:22)
[2021-10-08] MEDS: NYSTATIN POWDER 15 GM BOTTLE TOP SCH ×2 (09:23→21:37)
[2021-10-08] MEDS: MENTHOL/ZINC OXIDE OINT 71 GM JAR TOP SCH ×3 (09:23→21:38)
[2021-10-08] MEDS: FONDAPARINUX 2.5 MG/0.5 ML SYRINGE SUBCUT SCH (13:23)
[2021-10-08 16:38] LABS: Calcium 8.5 MG/DL (8.5-10.1); Osmolality,Calculated 287.8 MOS/KG (273-304); Potassium 4.5 MMOL/L (3.5-5.1)
[2021-10-08] MEDS: TAMSULOSIN 0.4 MG CAPSULE PO SCH (21:33)
[2021-10-08] MEDS: PRAMIPEXOLE 0.25 MG TABLET PO SCH (21:34)
[2021-10-08] MEDS: MELATONIN 3 MG TABLET PO PRN (21:36)
[2021-10-09] MEDS: ALBUTEROL/IPRATROPIUM 3 ML NEB RESP TX SCH ×4 (00:30→19:30)
[2021-10-09] MEDS: methylPREDNISolone SOD SUC 40 MG/1 ML VIAL IV SCH ×3 (03:12→18:35)
[2021-10-09] MEDS: guaiFENesin/DM ER 600-30 MG TABLET PO PRN ×2 (05:21→20:46)
[2021-10-09] MEDS ORDERED: methylPREDNISolone SOD SUC 125 MG/2 ML VIAL IV ONE (05:49)
[2021-10-09 05:56] LABS: ABG Base Excess 1.5 MMOL/L (-2.5-2.5); ABG HCO3 25.6 MMOL/L (20-26); ABG Oxygen Saturation 88.2 % (95-100); ABG PCO2 38.8 MM HG (35-48); ABG PO2 59.6 MM HG (80-95); ABG TCO2 22.8 MMOL/L (23-27)
[2021-10-09 06:08] LABS: Basophils # 0.1 10*3/uL (0.0-0.2); Basophils % 0.2 % (0.0-0.8); Hematocrit 37.5 VOL% (42.0-52.0); Immature Granulocytes % 2.4 %; Immature Granulocytes Absolute 0.59 #; Lymphocytes # 0.6 10*3/uL (1.4-4.0); Lymphocytes % 2.5 % (21.2-54.2); Mean Corpuscular Volume 91.9 FL (87-102); Mean Platelet Volume 11.8 FL (9.6-12.0); Monocytes % 4.3 % (1.7-12.7); Neutrophils % 90.6 % (38.7-73.9); Platelet Count 157 T/CUMM (130-400); Red Blood Count 4.08 MC/CUMM (3.8-5.5); Red Cell Distribution Width 13.8 % (9.3-17.3); White Blood Count 24.9 T/CUMM (4-12)
[2021-10-09 06:25] LABS: Calcium 8.7 MG/DL (8.5-10.1); Osmolality,Calculated 292.4 MOS/KG (273-304); Potassium 4.4 MMOL/L (3.5-5.1)
[2021-10-09 06:42] LABS: Band Neutrophils 7 % (0-10); Lymphocytes 3 % (20-55); Platelet Estimate Normal; Segmented Neutrophils 83 % (50-85); Total Cells Counted 100
[2021-10-09 06:43] LABS: Anisocytosis 1+; Burr Cells 1+
[2021-10-09 08:54] LABS: Arterial Bicarbonate iSTAT 26.8 MMOL/L (20-26); Arterial pH iSTAT 7.46 (7.35-7.45)
[2021-10-09] MEDS: DILTIAZEM 30 MG TABLET PO SCH ×2 (10:02→20:47)
[2021-10-09] MEDS: FLUTICASONE/SALMETEROL 250-50 DISKUS 14 DOSE INH SCH ×2 (10:02→20:50)
[2021-10-09] MEDS: NYSTATIN POWDER 15 GM BOTTLE TOP SCH ×2 (10:03→20:50)
[2021-10-09] MEDS: ASPIRIN EC 81 MG TABLET PO SCH (10:03)
[2021-10-09] MEDS: MENTHOL/ZINC OXIDE OINT 71 GM JAR TOP SCH ×3 (10:03→20:50)
[2021-10-09] MEDS: DOCUSATE SODIUM 100 MG CAPSULE PO SCH ×2 (10:03→20:47)
[2021-10-09] MEDS: PANTOPRAZOLE 40 MG TABLET PO SCH (10:03)
[2021-10-09] MEDS: METOPROLOL SUCCINATE XL 50 MG TABLET PO SCH (10:04)
[2021-10-09] MEDS ORDERED: PROMETHAZINE 25 MG/1 ML VIAL IM ONE (13:00)
[2021-10-09] MEDS ORDERED: MEPERIDINE 50 MG/1 ML VIAL IM ONE (13:00)
[2021-10-09] MEDS ORDERED: hydrOXYzine HCL 25 MG TABLET PO PRN (13:03)
[2021-10-09] MEDS ORDERED: MIDAZOLAM 2 MG/2 ML VIAL ONE (13:08)
[2021-10-09] MEDS ORDERED: LIDOCAINE 2% 20 ML VIAL RESP TX ONE (13:30)
[2021-10-09] MEDS ORDERED: LIDOCAINE 1% 20 ML VIAL MISC INJ ONE (13:30)
[2021-10-09] MEDS ORDERED: MIDAZOLAM 10 MG/2 ML VIAL IV ONE (13:30)
[2021-10-09] MEDS ORDERED: LIDOCAINE 2% VISCOUS 100 ML BOTTLE SWISH/SPIT ONE (13:30)
[2021-10-09] MEDS: FONDAPARINUX 2.5 MG/0.5 ML SYRINGE SUBCUT SCH (15:22)
[2021-10-09] MEDS: SODIUM CHLORIDE 0.65% NASAL SPRAY 45 ML BOTTLE BOTH NARES SCH ×2 (18:35→20:50)
[2021-10-09] MEDS: MELATONIN 3 MG TABLET PO PRN (20:47)
[2021-10-09] MEDS: PRAMIPEXOLE 0.25 MG TABLET PO SCH (20:47)
[2021-10-09] MEDS: TAMSULOSIN 0.4 MG CAPSULE PO SCH (20:47)
[2021-10-10] MEDS: ALBUTEROL/IPRATROPIUM 3 ML NEB RESP TX SCH ×4 (00:40→19:21)
[2021-10-10] MEDS ORDERED: ACETYLCYSTEINE 20% 800 MG/4 ML VIAL RESP TX ONE (01:30)
[2021-10-10] MEDS ORDERED: ALPRAZolam 0.5 MG TABLET PO ONE (02:06)
[2021-10-10] MEDS: methylPREDNISolone SOD SUC 40 MG/1 ML VIAL IV SCH ×3 (02:12→18:05)
[2021-10-10] MEDS ORDERED: ALPRAZolam 0.5 MG TABLET PO PRN (04:14)
[2021-10-10 05:25] LABS: Basophils % 0.1 % (0.0-0.8); Hematocrit 32.5 VOL% (42.0-52.0); Hemoglobin 10.4 GM/DL (14.0-18.0); Immature Granulocytes % 1.4 %; Immature Granulocytes Absolute 0.29 #; Lymphocytes # 0.4 10*3/uL (1.4-4.0); Lymphocytes % 2.1 % (21.2-54.2); Mean Corpuscular Volume 93.4 FL (87-102); Mean Platelet Volume 11.7 FL (9.6-12.0); Monocytes % 5.3 % (1.7-12.7); Neutrophils % 91.1 % (38.7-73.9); Platelet Count 136 T/CUMM (130-400); Red Blood Count 3.48 MC/CUMM (3.8-5.5); Red Cell Distribution Width 13.8 % (9.3-17.3); White Blood Count 20.1 T/CUMM (4-12)
[2021-10-10 05:44] LABS: Osmolality,Calculated 294.3 MOS/KG (273-304); Potassium 3.9 MMOL/L (3.5-5.1)
[2021-10-10 05:50] LABS: Band Neutrophils 2 % (0-10); Hypochromia 1+; Lymphocytes 1 % (20-55); Microcytosis 1+; Platelet Estimate Adequate; Segmented Neutrophils 95 % (50-85); Total Cells Counted 100
[2021-10-10] MEDS: ACETYLCYSTEINE 20% 800 MG/4 ML VIAL RESP TX SCH ×3 (07:03→19:21)
[2021-10-10] MEDS ORDERED: FUROSEMIDE 20 MG/2 ML VIAL IV ONE (07:30)
[2021-10-10] MEDS: ESCITALOPRAM 10 MG TABLET PO SCH (10:30)
[2021-10-10] MEDS: PANTOPRAZOLE 40 MG TABLET PO SCH (10:30)
[2021-10-10] MEDS: DILTIAZEM 30 MG TABLET PO SCH ×2 (10:31→21:25)
[2021-10-10] MEDS: METOPROLOL SUCCINATE XL 50 MG TABLET PO SCH (10:31)
[2021-10-10] MEDS: guaiFENesin/DM ER 600-30 MG TABLET PO SCH ×2 (10:31→21:25)
[2021-10-10] MEDS: ASPIRIN EC 81 MG TABLET PO SCH (10:32)
[2021-10-10] MEDS: DOCUSATE SODIUM 100 MG CAPSULE PO SCH ×2 (10:32→21:44)
[2021-10-10] MEDS: FLUTICASONE/SALMETEROL 250-50 DISKUS 14 DOSE INH SCH ×2 (10:33→21:44)
[2021-10-10] MEDS: MENTHOL/ZINC OXIDE OINT 71 GM JAR TOP SCH ×3 (10:35→21:26)
[2021-10-10] MEDS: NYSTATIN POWDER 15 GM BOTTLE TOP SCH ×2 (10:36→21:26)
[2021-10-10] MEDS: SODIUM CHLORIDE 0.65% NASAL SPRAY 45 ML BOTTLE BOTH NARES SCH ×4 (10:37→21:27)
[2021-10-10] MEDS: FONDAPARINUX 2.5 MG/0.5 ML SYRINGE SUBCUT SCH (12:58)
[2021-10-10] MEDS ORDERED: DEXTROSE 50% 25 GM/50 ML VIAL IV PRN (14:29)
[2021-10-10] MEDS: TAMSULOSIN 0.4 MG CAPSULE PO SCH (21:25)
[2021-10-10] MEDS: PRAMIPEXOLE 0.25 MG TABLET PO SCH (21:25)
[2021-10-10] MEDS: MELATONIN 3 MG TABLET PO PRN (21:25)
[2021-10-11] MEDS: ALBUTEROL/IPRATROPIUM 3 ML NEB RESP TX SCH ×4 (00:30→19:20)
[2021-10-11] MEDS: ACETYLCYSTEINE 20% 800 MG/4 ML VIAL RESP TX SCH ×4 (00:30→19:20)
[2021-10-11] MEDS: methylPREDNISolone SOD SUC 40 MG/1 ML VIAL IV SCH ×3 (03:26→18:47)
[2021-10-11 06:38] LABS: Basophils % 0.1 % (0.0-0.8); Hematocrit 33.7 VOL% (42.0-52.0); Hemoglobin 10.9 GM/DL (14.0-18.0); Immature Granulocytes % 1.4 %; Immature Granulocytes Absolute 0.28 #; Lymphocytes # 0.5 10*3/uL (1.4-4.0); Lymphocytes % 2.3 % (21.2-54.2); Mean Corpuscular HGB Conc 32.3 GM/DL (32-36); Mean Corpuscular Volume 91.6 FL (87-102); Mean Platelet Volume 11.9 FL (9.6-12.0); Monocytes % 4.8 % (1.7-12.7); Neutrophils % 91.4 % (38.7-73.9); Platelet Count 146 T/CUMM (130-400); Red Blood Count 3.68 MC/CUMM (3.8-5.5); Red Cell Distribution Width 14.1 % (9.3-17.3); White Blood Count 19.5 T/CUMM (4-12)
[2021-10-11 06:51] LABS: Potassium 4.1 MMOL/L (3.5-5.1)
[2021-10-11 07:08] LABS: Lymphocytes 4 % (20-55); Platelet Estimate Adequate; Segmented Neutrophils 93 % (50-85); Total Cells Counted 100
[2021-10-11] MEDS: DILTIAZEM 30 MG TABLET PO SCH ×2 (09:09→20:50)
[2021-10-11] MEDS: MENTHOL/ZINC OXIDE OINT 71 GM JAR TOP SCH ×3 (09:09→20:51)
[2021-10-11] MEDS: ASPIRIN EC 81 MG TABLET PO SCH (09:09)
[2021-10-11] MEDS: FLUTICASONE/SALMETEROL 250-50 DISKUS 14 DOSE INH SCH ×2 (09:09→20:50)
[2021-10-11] MEDS: DOCUSATE SODIUM 100 MG CAPSULE PO SCH ×2 (09:09→20:50)
[2021-10-11] MEDS: PANTOPRAZOLE 40 MG TABLET PO SCH (09:10)
[2021-10-11] MEDS: NYSTATIN POWDER 15 GM BOTTLE TOP SCH ×2 (09:10→20:51)
[2021-10-11] MEDS: ESCITALOPRAM 10 MG TABLET PO SCH (09:10)
[2021-10-11] MEDS: SODIUM CHLORIDE 0.65% NASAL SPRAY 45 ML BOTTLE BOTH NARES SCH ×4 (09:10→20:54)
[2021-10-11] MEDS: guaiFENesin/DM ER 600-30 MG TABLET PO SCH ×2 (09:10→20:50)
[2021-10-11] MEDS: METOPROLOL SUCCINATE XL 50 MG TABLET PO SCH (09:10)
[2021-10-11] MEDS: FONDAPARINUX 2.5 MG/0.5 ML SYRINGE SUBCUT SCH (11:42)
[2021-10-11] MEDS: NYSTATIN 500,000 UNIT/5 ML UDCUP SWISH/SWAL SCH (20:49)
[2021-10-11] MEDS: TAMSULOSIN 0.4 MG CAPSULE PO SCH (20:50)
[2021-10-11] MEDS: PRAMIPEXOLE 0.25 MG TABLET PO SCH (20:51)
[2021-10-11] MEDS: MELATONIN 3 MG TABLET PO PRN (20:52)
[2021-10-12] MEDS: ALBUTEROL/IPRATROPIUM 3 ML NEB RESP TX SCH ×4 (00:11→19:19)
[2021-10-12] MEDS: ACETYLCYSTEINE 20% 800 MG/4 ML VIAL RESP TX SCH ×4 (00:11→19:19)
[2021-10-12 05:54] LABS: Basophils # 0.1 10*3/uL (0.0-0.2); Basophils % 0.2 % (0.0-0.8); Hematocrit 35.3 VOL% (42.0-52.0); Hemoglobin 11.1 GM/DL (14.0-18.0); Immature Granulocytes % 1.2 %; Immature Granulocytes Absolute 0.27 #; Lymphocytes # 0.4 10*3/uL (1.4-4.0); Lymphocytes % 1.9 % (21.2-54.2); Mean Corpuscular HGB Conc 31.4 GM/DL (32-36); Mean Corpuscular Volume 92.4 FL (87-102); Mean Platelet Volume 11.9 FL (9.6-12.0); Monocytes % 4.2 % (1.7-12.7); Neutrophils % 92.5 % (38.7-73.9); Platelet Count 154 T/CUMM (130-400); Red Blood Count 3.82 MC/CUMM (3.8-5.5); White Blood Count 22.9 T/CUMM (4-12)
[2021-10-12] MEDS: methylPREDNISolone SOD SUC 40 MG/1 ML VIAL IV SCH ×2 (06:05→18:15)
[2021-10-12 06:08] LABS: Calcium 8.3 MG/DL (8.5-10.1); Osmolality,Calculated 299.8 MOS/KG (273-304)
[2021-10-12 06:32] LABS: Band Neutrophils 1 % (0-10); Lymphocytes 1 % (20-55); Platelet Estimate Normal; Segmented Neutrophils 95 % (50-85); Total Cells Counted 100
[2021-10-12] MEDS ORDERED: FLUCONAZOLE INJ 200 MG/100 ML PREMIX IV ONE (07:46)
[2021-10-12] MEDS: PANTOPRAZOLE 40 MG TABLET PO SCH (08:54)
[2021-10-12] MEDS: ESCITALOPRAM 10 MG TABLET PO SCH (08:54)
[2021-10-12] MEDS: DILTIAZEM 30 MG TABLET PO SCH ×2 (08:54→20:24)
[2021-10-12] MEDS: DOCUSATE SODIUM 100 MG CAPSULE PO SCH ×2 (08:54→20:28)
[2021-10-12] MEDS: METOPROLOL SUCCINATE XL 50 MG TABLET PO SCH (08:54)
[2021-10-12] MEDS: ASPIRIN EC 81 MG TABLET PO SCH (08:54)
[2021-10-12] MEDS: guaiFENesin/DM ER 600-30 MG TABLET PO SCH ×2 (08:54→20:24)
[2021-10-12] MEDS: NYSTATIN 500,000 UNIT/5 ML UDCUP SWISH/SWAL SCH ×4 (08:54→20:23)
[2021-10-12] MEDS: MENTHOL/ZINC OXIDE OINT 71 GM JAR TOP SCH ×3 (09:25→20:23)
[2021-10-12] MEDS: FLUTICASONE/SALMETEROL 250-50 DISKUS 14 DOSE INH SCH ×2 (09:25→20:24)
[2021-10-12] MEDS: SODIUM CHLORIDE 0.65% NASAL SPRAY 45 ML BOTTLE BOTH NARES SCH ×4 (09:25→20:24)
[2021-10-12] MEDS: NYSTATIN POWDER 15 GM BOTTLE TOP SCH ×2 (09:25→20:23)
[2021-10-12] MEDS: FONDAPARINUX 2.5 MG/0.5 ML SYRINGE SUBCUT SCH (12:26)
[2021-10-12 19:26] LABS: Specimen Source BRONCH WASH
[2021-10-12] MEDS: TAMSULOSIN 0.4 MG CAPSULE PO SCH (20:24)
[2021-10-12] MEDS: MELATONIN 3 MG TABLET PO PRN (20:25)
[2021-10-12] MEDS: PRAMIPEXOLE 0.25 MG TABLET PO SCH (20:25)
[2021-10-13] MEDS: ALBUTEROL/IPRATROPIUM 3 ML NEB RESP TX SCH ×4 (00:45→19:30)
[2021-10-13] MEDS: ACETYLCYSTEINE 20% 800 MG/4 ML VIAL RESP TX SCH ×2 (00:45→07:25)
[2021-10-13 05:23] LABS: Basophils % 0.2 % (0.0-0.8); Hematocrit 36.1 VOL% (42.0-52.0); Hemoglobin 11.6 GM/DL (14.0-18.0); Immature Granulocytes % 1.8 %; Immature Granulocytes Absolute 0.45 #; Lymphocytes # 0.4 10*3/uL (1.4-4.0); Lymphocytes % 1.7 % (21.2-54.2); Mean Corpuscular HGB Conc 32.1 GM/DL (32-36); Mean Corpuscular Volume 92.8 FL (87-102); Monocytes % 3.7 % (1.7-12.7); Neutrophils % 92.6 % (38.7-73.9); Platelet Count 137 T/CUMM (130-400); Red Blood Count 3.89 MC/CUMM (3.8-5.5); White Blood Count 25.3 T/CUMM (4-12)
[2021-10-13 05:47] LABS: Calcium 8.7 MG/DL (8.5-10.1); Potassium 4.6 MMOL/L (3.5-5.1)
[2021-10-13 05:53] LABS: Band Neutrophils 1 % (0-10); Lymphocytes 2 % (20-55); Segmented Neutrophils 96 % (50-85); Total Cells Counted 100
[2021-10-13 05:54] LABS: Hypochromia Slight; Microcytosis Slight; Ovalocytes Slight; Platelet Estimate Adequate
[2021-10-13] MEDS: methylPREDNISolone SOD SUC 40 MG/1 ML VIAL IV SCH ×2 (06:13→15:53)
[2021-10-13] MEDS: guaiFENesin/DM ER 600-30 MG TABLET PO SCH ×2 (08:55→21:00)
[2021-10-13] MEDS: ASPIRIN EC 81 MG TABLET PO SCH (08:55)
[2021-10-13] MEDS: NYSTATIN 500,000 UNIT/5 ML UDCUP SWISH/SWAL SCH ×4 (08:55→21:00)
[2021-10-13] MEDS: ESCITALOPRAM 10 MG TABLET PO SCH (08:55)
[2021-10-13] MEDS: DILTIAZEM 30 MG TABLET PO SCH ×2 (08:55→21:00)
[2021-10-13] MEDS: METOPROLOL SUCCINATE XL 50 MG TABLET PO SCH (08:55)
[2021-10-13] MEDS: PANTOPRAZOLE 40 MG TABLET PO SCH (08:55)
[2021-10-13] MEDS: ALPRAZolam 0.5 MG TABLET PO PRN (08:55)
[2021-10-13] MEDS: MENTHOL/ZINC OXIDE OINT 71 GM JAR TOP SCH ×3 (08:58→21:00)
[2021-10-13] MEDS: NYSTATIN POWDER 15 GM BOTTLE TOP SCH ×2 (08:58→21:00)
[2021-10-13] MEDS: FLUTICASONE/SALMETEROL 250-50 DISKUS 14 DOSE INH SCH ×2 (08:58→21:00)
[2021-10-13] MEDS: SODIUM CHLORIDE 0.65% NASAL SPRAY 45 ML BOTTLE BOTH NARES SCH ×4 (08:58→22:00)
[2021-10-13] MEDS: DOCUSATE SODIUM 100 MG CAPSULE PO SCH ×2 (09:01→21:00)
[2021-10-13] MEDS: FONDAPARINUX 2.5 MG/0.5 ML SYRINGE SUBCUT SCH (14:09)
[2021-10-13 15:06] LABS: Arterial Base Excess iSTAT 3 MMOL/L (-2.5-2.5); Arterial Bicarbonate iSTAT 25.6 MMOL/L (20-26); Arterial O2 Saturation iSTAT 93 % (95-100); Arterial PCO2 iSTAT 32 MM HG (35-48); Arterial PO2 iSTAT 59 MM HG (80-95); Arterial Total CO2 iSTAT 27 MMO/L (23-27); Arterial pH iSTAT 7.505 (7.35-7.45)
[2021-10-13] MEDS ORDERED: FUROSEMIDE 40 MG/4 ML VIAL IV ONE (15:09)
[2021-10-13] MEDS: CEFEPIME 1,000 MG in SODIUM CHLORIDE 0.9% 100 ML IV SCH ×2 (15:52→21:30)
[2021-10-13] MEDS: metroNIDAZOLE INJ 500 MG/100 ML PREMIX IV SCH (16:18)
[2021-10-13] MEDS: FLUCONAZOLE INJ 200 MG/100 ML PREMIX IV SCH (16:18)
[2021-10-13] MEDS ORDERED: MORPHINE 4 MG/1 ML VIAL IV ONE (17:30)
[2021-10-13] MEDS ORDERED: MORPHINE 4 MG/1 ML VIAL ONE (17:30)
[2021-10-13] MEDS: BUDESONIDE 0.5 MG/2 ML NEB RESP TX SCH (19:30)
[2021-10-13] MEDS: PRAMIPEXOLE 0.25 MG TABLET PO SCH (21:00)
[2021-10-13] MEDS: TAMSULOSIN 0.4 MG CAPSULE PO SCH (21:00)
[2021-10-13] MEDS: MELATONIN 3 MG TABLET PO PRN (21:30)
[2021-10-14] MEDS: metroNIDAZOLE INJ 500 MG/100 ML PREMIX IV SCH ×2 (00:34→07:58)
[2021-10-14] MEDS: methylPREDNISolone SOD SUC 40 MG/1 ML VIAL IV SCH ×2 (00:38→07:58)
[2021-10-14] MEDS: ALBUTEROL/IPRATROPIUM 3 ML NEB RESP TX SCH ×4 (00:59→19:27)
[2021-10-14] MEDS: ALPRAZolam 0.5 MG TABLET PO PRN ×3 (02:11→04:30)
[2021-10-14] MEDS: CEFEPIME 1,000 MG in SODIUM CHLORIDE 0.9% 100 ML IV SCH (04:00)
[2021-10-14 04:20] LABS: Arterial Bicarbonate iSTAT 28.2 MMOL/L (20-26); Arterial pH iSTAT 7.398 (7.35-7.45)
[2021-10-14 04:50] LABS: Basophils # 0.1 10*3/uL (0.0-0.2); Basophils % 0.2 % (0.0-0.8); Hematocrit 38.6 VOL% (42.0-52.0); Hemoglobin 12.1 GM/DL (14.0-18.0); Immature Granulocytes % 1.7 %; Immature Granulocytes Absolute 0.49 #; Lymphocytes # 0.4 10*3/uL (1.4-4.0); Lymphocytes % 1.5 % (21.2-54.2); Mean Corpuscular HGB Conc 31.3 GM/DL (32-36); Mean Corpuscular Volume 93.7 FL (87-102); Mean Platelet Volume 11.7 FL (9.6-12.0); Monocytes % 2.7 % (1.7-12.7); Neutrophils % 93.9 % (38.7-73.9); Platelet Count 112 T/CUMM (130-400); Red Blood Count 4.12 MC/CUMM (3.8-5.5); Red Cell Distribution Width 14.4 % (9.3-17.3); White Blood Count 29.4 T/CUMM (4-12)
[2021-10-14 05:08] LABS: Calcium 9.1 MG/DL (8.5-10.1); Osmolality,Calculated 310.4 MOS/KG (273-304); Potassium 4.1 MMOL/L (3.5-5.1)
[2021-10-14 05:23] LABS: Eosinophils 1 % (0-10); Lymphocytes 1 % (20-55); Segmented Neutrophils 97 % (50-85); Total Cells Counted 100
[2021-10-14 05:24] LABS: Hypochromia Slight; Microcytosis Slight
[2021-10-14] MEDS ORDERED: methylPREDNISolone SOD SUC 40 MG/1 ML VIAL IV SCH (06:00)
[2021-10-14] MEDS: BUDESONIDE 0.5 MG/2 ML NEB RESP TX SCH ×2 (07:18→19:27)
[2021-10-14] MEDS: MENTHOL/ZINC OXIDE OINT 71 GM JAR TOP SCH ×3 (08:17→21:15)
[2021-10-14] MEDS: NYSTATIN POWDER 15 GM BOTTLE TOP SCH ×2 (08:17→22:01)
[2021-10-14] MEDS: FLUTICASONE/SALMETEROL 250-50 DISKUS 14 DOSE INH SCH ×2 (08:17→21:46)
[2021-10-14] MEDS: SODIUM CHLORIDE 0.65% NASAL SPRAY 45 ML BOTTLE BOTH NARES SCH ×4 (08:17→22:01)
[2021-10-14] MEDS: NYSTATIN 500,000 UNIT/5 ML UDCUP SWISH/SWAL SCH ×4 (09:15→22:01)
[2021-10-14] MEDS: ESCITALOPRAM 10 MG TABLET PO SCH (09:15)
[2021-10-14] MEDS: METOPROLOL SUCCINATE XL 50 MG TABLET PO SCH (09:16)
[2021-10-14] MEDS: DILTIAZEM 30 MG TABLET PO SCH ×2 (09:16→21:28)
[2021-10-14] MEDS: DOCUSATE SODIUM 100 MG CAPSULE PO SCH ×2 (09:16→21:30)
[2021-10-14] MEDS: guaiFENesin/DM ER 600-30 MG TABLET PO SCH ×2 (09:16→22:01)
[2021-10-14] MEDS: ASPIRIN EC 81 MG TABLET PO SCH (09:16)
[2021-10-14] MEDS: PANTOPRAZOLE 40 MG TABLET PO SCH (09:16)
[2021-10-14] MEDS: SODIUM CHLORIDE 0.45% 1,000 ML IV SCH ×2 (09:17→19:25)
[2021-10-14] MEDS: MEROPENEM 500 MG in SODIUM CHLORIDE 0.9% 100 ML IV SCH ×3 (09:17→21:20)
[2021-10-14] MEDS: DEXAMETHASONE 4 MG/1 ML VIAL IV SCH ×2 (12:05→23:30)
[2021-10-14] MEDS: FONDAPARINUX 2.5 MG/0.5 ML SYRINGE SUBCUT SCH (12:37)
[2021-10-14] MEDS ORDERED: SUCCINYLCHOLINE 200 MG/10 ML VIAL ONE (12:56)
[2021-10-14] MEDS ORDERED: ETOMIDATE 20 MG/10 ML VIAL IV ONE ×3 (12:56→13:12)
[2021-10-14] MEDS ORDERED: SUCCINYLCHOLINE 200 MG/10 ML VIAL IV ONE (13:13)
[2021-10-14] MEDS ORDERED: MIDAZOLAM 2 MG/2 ML VIAL IV ONE (13:30)
[2021-10-14] MEDS ORDERED: MIDAZOLAM 2 MG/2 ML VIAL ONE (13:30)
[2021-10-14 15:46] LABS: ABG Base Excess -0.1 MMOL/L (-2.5-2.5); ABG HCO3 24.4 MMOL/L (20-26); ABG Oxygen Saturation 98.1 % (95-100); ABG PCO2 58.8 MM HG (35-48); ABG PH 7.282 (7.35-7.45); ABG TCO2 25.4 MMOL/L (23-27)
[2021-10-14] MEDS: MIDAZOLAM 100 MG in SODIUM CHLORIDE 0.9% 80 ML IV PRN (16:00)
[2021-10-14] MEDS: FLUCONAZOLE INJ 200 MG/100 ML PREMIX IV SCH (16:00)
[2021-10-14] MEDS ORDERED: SODIUM CHLORIDE 0.9% 1,000 ML IV ONE (18:13)
[2021-10-14] MEDS: PHENYLEPHRINE DRIP 40 MG/250 ML PREMIX IV PRN (20:33)
[2021-10-14] MEDS: TAMSULOSIN 0.4 MG CAPSULE PO SCH (21:34)
[2021-10-14] MEDS: PRAMIPEXOLE 0.25 MG TABLET PO SCH (22:01)
[2021-10-15] MEDS: ALBUTEROL/IPRATROPIUM 3 ML NEB RESP TX SCH ×4 (00:29→19:23)
[2021-10-15 03:53] LABS: ABG Base Excess -1.9 MMOL/L (-2.5-2.5); ABG HCO3 26.8 MMOL/L (20-26); ABG Oxygen Saturation 91.4 % (95-100); ABG PCO2 66.5 MM HG (35-48); ABG PH 7.223 (7.35-7.45); ABG TCO2 28.8 MMOL/L (23-27)
[2021-10-15 03:54] LABS: Basophils % 0.1 % (0.0-0.8); Hematocrit 34.7 VOL% (42.0-52.0); Hemoglobin 10.6 GM/DL (14.0-18.0); Immature Granulocytes % 1.1 %; Immature Granulocytes Absolute 0.24 #; Lymphocytes # 0.2 10*3/uL (1.4-4.0); Lymphocytes % 1.1 % (21.2-54.2); Mean Corpuscular HGB Conc 30.5 GM/DL (32-36); Mean Corpuscular Volume 97.7 FL (87-102); Mean Platelet Volume 11.7 FL (9.6-12.0); Monocytes % 1.6 % (1.7-12.7); Neutrophils % 96.1 % (38.7-73.9); Platelet Count 75 T/CUMM (130-400); Red Blood Count 3.55 MC/CUMM (3.8-5.5); Red Cell Distribution Width 14.5 % (9.3-17.3)
[2021-10-15 04:14] LABS: Calcium 7.8 MG/DL (8.5-10.1); Osmolality,Calculated 317.9 MOS/KG (273-304); Potassium 4.6 MMOL/L (3.5-5.1)
[2021-10-15 04:20] LABS: Hypochromia Slight; Lymphocytes 1 % (20-55); Microcytosis Slight; Platelet Estimate Decreased; Segmented Neutrophils 98 % (50-85); Total Cells Counted 100
[2021-10-15] MEDS: MEROPENEM 500 MG in SODIUM CHLORIDE 0.9% 100 ML IV SCH ×2 (04:31→08:55)
[2021-10-15] MEDS: SODIUM CHLORIDE 0.45% 1,000 ML IV SCH ×3 (05:30→15:08)
[2021-10-15] MEDS: BUDESONIDE 0.5 MG/2 ML NEB RESP TX SCH ×2 (07:25→19:23)
[2021-10-15] MEDS: DILTIAZEM 30 MG TABLET PO SCH ×2 (08:53→21:42)
[2021-10-15] MEDS: PANTOPRAZOLE 40 MG TABLET PO SCH (08:53)
[2021-10-15] MEDS: ESCITALOPRAM 10 MG TABLET PO SCH (08:53)
[2021-10-15] MEDS: guaiFENesin/DM ER 600-30 MG TABLET PO SCH ×2 (08:53→21:35)
[2021-10-15] MEDS: ASPIRIN EC 81 MG TABLET PO SCH (08:53)
[2021-10-15] MEDS: DOCUSATE SODIUM 100 MG CAPSULE PO SCH ×2 (08:53→21:35)
[2021-10-15] MEDS: NYSTATIN 500,000 UNIT/5 ML UDCUP SWISH/SWAL SCH ×4 (08:54→21:35)
[2021-10-15] MEDS: SODIUM CHLORIDE 0.65% NASAL SPRAY 45 ML BOTTLE BOTH NARES SCH ×4 (10:00→21:35)
[2021-10-15] MEDS: NYSTATIN POWDER 15 GM BOTTLE TOP SCH ×2 (10:00→21:35)
[2021-10-15] MEDS: MENTHOL/ZINC OXIDE OINT 71 GM JAR TOP SCH ×3 (10:00→21:35)
[2021-10-15] MEDS: fentaNYL INJ 1,250 MCG in SODIUM CHLORIDE 0.9% 225 ML IV PRN (10:55)
[2021-10-15 11:36] LABS: ABG Base Excess -0.3 MMOL/L (-2.5-2.5); ABG HCO3 28.1 MMOL/L (20-26); ABG Oxygen Saturation 94.1 % (95-100); ABG PCO2 66.8 MM HG (35-48); ABG PH 7.242 (7.35-7.45); ABG PO2 83.9 MM HG (80-95); ABG TCO2 30.2 MMOL/L (23-27)
[2021-10-15] MEDS: FLUTICASONE/SALMETEROL 250-50 DISKUS 14 DOSE INH SCH ×2 (12:14→21:34)
[2021-10-15] MEDS: METOPROLOL SUCCINATE XL 50 MG TABLET PO SCH (12:16)
[2021-10-15] MEDS: FONDAPARINUX 2.5 MG/0.5 ML SYRINGE SUBCUT SCH (13:00)
[2021-10-15] MEDS: DEXAMETHASONE 4 MG/1 ML VIAL IV SCH (14:58)
[2021-10-15] MEDS: MIDAZOLAM 100 MG in SODIUM CHLORIDE 0.9% 80 ML IV PRN (15:07)
[2021-10-15] MEDS: LEVOFLOXACIN INJ 750 MG/150 ML PREMIX IV SCH (16:00)
[2021-10-15] MEDS: FLUCONAZOLE INJ 200 MG/100 ML PREMIX IV SCH (17:00)
[2021-10-15] MEDS: PRAMIPEXOLE 0.25 MG TABLET PO SCH (21:35)
[2021-10-15] MEDS: TAMSULOSIN 0.4 MG CAPSULE PO SCH (21:35)
[2021-10-16] MEDS: ALBUTEROL/IPRATROPIUM 3 ML NEB RESP TX SCH ×4 (00:32→19:39)
[2021-10-16] MEDS: SODIUM CHLORIDE 0.45% 1,000 ML IV SCH ×2 (00:46→03:53)
[2021-10-16 03:45] LABS: ABG Base Excess -0.1 MMOL/L (-2.5-2.5); ABG HCO3 28.1 MMOL/L (20-26); ABG Oxygen Saturation 93.9 % (95-100); ABG PCO2 65.9 MM HG (35-48); ABG PH 7.248 (7.35-7.45); ABG PO2 81.7 MM HG (80-95); ABG TCO2 30.1 MMOL/L (23-27)
[2021-10-16 03:48] LABS: Basophils % 0.1 % (0.0-0.8); Hematocrit 32.3 VOL% (42.0-52.0); Hemoglobin 9.5 GM/DL (14.0-18.0); Immature Granulocytes Absolute 0.18 #; Lymphocytes # 0.2 10*3/uL (1.4-4.0); Lymphocytes % 1.4 % (21.2-54.2); Mean Corpuscular HGB Conc 29.4 GM/DL (32-36); Mean Corpuscular Volume 101.3 FL (87-102); Mean Platelet Volume 12.7 FL (9.6-12.0); Monocytes % 2.2 % (1.7-12.7); Neutrophils % 95.3 % (38.7-73.9); Platelet Count 63 T/CUMM (130-400); Red Blood Count 3.19 MC/CUMM (3.8-5.5); Red Cell Distribution Width 14.6 % (9.3-17.3); White Blood Count 17.2 T/CUMM (4-12)
[2021-10-16 04:05] LABS: Albumin 1.5 G/DL (3.4-5.0); Bilirubin,Total 1.3 MG/DL (0.20-1.00); Calcium 7.7 MG/DL (8.5-10.1); Osmolality,Calculated 313.1 MOS/KG (273-304); Potassium 5.6 MMOL/L (3.5-5.1); Total Protein 4.6 G/DL (6.4-8.2)
[2021-10-16 04:07] LABS: Hypochromia Slight; Lymphocytes 1 % (20-55); Microcytosis Slight; Platelet Estimate Decreased; Segmented Neutrophils 98 % (50-85); Total Cells Counted 100
[2021-10-16] MEDS ORDERED: SODIUM POLYSTYRENE SULFATE 15 GM/60 ML BOTTLE PO ONE (04:51)
[2021-10-16] MEDS: MIDAZOLAM 100 MG in SODIUM CHLORIDE 0.9% 80 ML IV PRN ×2 (06:21→22:02)
[2021-10-16] MEDS: BUDESONIDE 0.5 MG/2 ML NEB RESP TX SCH ×2 (07:15→19:39)
[2021-10-16] MEDS: guaiFENesin/DM ER 600-30 MG TABLET PO SCH ×2 (08:51→20:02)
[2021-10-16] MEDS: ASPIRIN EC 81 MG TABLET PO SCH (08:52)
[2021-10-16] MEDS: PANTOPRAZOLE 40 MG TABLET PO SCH (08:52)
[2021-10-16] MEDS: DILTIAZEM 30 MG TABLET PO SCH ×2 (08:52→20:02)
[2021-10-16] MEDS: MENTHOL/ZINC OXIDE OINT 71 GM JAR TOP SCH ×3 (08:53→20:01)
[2021-10-16] MEDS: SODIUM CHLORIDE 0.65% NASAL SPRAY 45 ML BOTTLE BOTH NARES SCH ×4 (08:53→20:02)
[2021-10-16] MEDS: NYSTATIN POWDER 15 GM BOTTLE TOP SCH ×2 (08:53→20:01)
[2021-10-16] MEDS: DOCUSATE SODIUM 100 MG CAPSULE PO SCH ×2 (08:53→20:02)
[2021-10-16] MEDS: FLUTICASONE/SALMETEROL 250-50 DISKUS 14 DOSE INH SCH ×2 (08:53→20:03)
[2021-10-16] MEDS: NYSTATIN 500,000 UNIT/5 ML UDCUP SWISH/SWAL SCH ×4 (08:53→20:02)
[2021-10-16] MEDS: ESCITALOPRAM 10 MG TABLET PO SCH (08:53)
[2021-10-16] MEDS: METOPROLOL SUCCINATE XL 50 MG TABLET PO SCH (09:23)
[2021-10-16] MEDS: fentaNYL INJ 1,250 MCG in SODIUM CHLORIDE 0.9% 225 ML IV PRN ×2 (09:25→23:56)
[2021-10-16] MEDS: DEXAMETHASONE 4 MG/1 ML VIAL IV SCH ×3 (12:06→22:08)
[2021-10-16] MEDS: FONDAPARINUX 2.5 MG/0.5 ML SYRINGE SUBCUT SCH (12:12)
[2021-10-16 13:16] LABS: ABG Base Excess 1.1 MMOL/L (-2.5-2.5); ABG HCO3 28.5 MMOL/L (20-26); ABG Oxygen Saturation 95.1 % (95-100); ABG PCO2 60.6 MM HG (35-48); ABG PO2 85.7 MM HG (80-95); ABG TCO2 30.3 MMOL/L (23-27)
[2021-10-16] MEDS: LEVOFLOXACIN INJ 750 MG/150 ML PREMIX IV SCH (16:10)
[2021-10-16] MEDS: FLUCONAZOLE INJ 200 MG/100 ML PREMIX IV SCH (16:11)
[2021-10-16] MEDS: PRAMIPEXOLE 0.25 MG TABLET PO SCH (20:02)
[2021-10-16] MEDS: TAMSULOSIN 0.4 MG CAPSULE PO SCH (20:02)
[2021-10-17] MEDS: ALBUTEROL/IPRATROPIUM 3 ML NEB RESP TX SCH ×4 (00:15→19:14)
[2021-10-17 03:29] LABS: ABG Base Excess 3.1 MMOL/L (-2.5-2.5); ABG HCO3 27.2 MMOL/L (20-26); ABG Oxygen Saturation 95.9 % (95-100); ABG PCO2 63.5 MM HG (35-48); ABG PH 7.295 (7.35-7.45); ABG PO2 89.6 MM HG (80-95); ABG TCO2 28.9 MMOL/L (23-27)
[2021-10-17 03:43] LABS: Basophils # 0.1 10*3/uL (0.0-0.2); Basophils % 0.3 % (0.0-0.8); Hematocrit 29.4 VOL% (42.0-52.0); Hemoglobin 8.7 GM/DL (14.0-18.0); Immature Granulocytes % 1.3 %; Immature Granulocytes Absolute 0.24 #; Lymphocytes # 0.3 10*3/uL (1.4-4.0); Lymphocytes % 1.5 % (21.2-54.2); Mean Corpuscular HGB Conc 29.6 GM/DL (32-36); Mean Platelet Volume 12.8 FL (9.6-12.0); Monocytes % 2.1 % (1.7-12.7); Neutrophils % 94.8 % (38.7-73.9); Platelet Count 52 T/CUMM (130-400); Red Blood Count 2.94 MC/CUMM (3.8-5.5); Red Cell Distribution Width 14.7 % (9.3-17.3); White Blood Count 18.1 T/CUMM (4-12)
[2021-10-17 03:49] LABS: Alanine Aminotransferase 16 U/L (16-61); Albumin 1.4 G/DL (3.4-5.0); Alkaline Phosphatase 105 U/L (45-117); Aspartate Amino Transferase 14 U/L (0-37); Bilirubin,Total < 0.39 MG/DL (0.20-1.00); Blood Urea Nitrogen 52 MG/DL (7-18); Calcium 7.6 MG/DL (8.5-10.1); Carbon Dioxide 30 MMOL/L (21-32); Estimated Glom Filtration Rate 104 ML/MIN; Glucose 165 MG/DL (74-106); Osmolality,Calculated 309.4 MOS/KG (273-304); Sodium 147 MMOL/L (136-145); Total Protein 4.4 G/DL (6.4-8.2)
[2021-10-17 03:50] LABS: Potassium 6.1 MMOL/L (3.5-5.1)
[2021-10-17 04:04] LABS: Lymphocytes 5 % (20-55); Segmented Neutrophils 93 % (50-85); Total Cells Counted 100
[2021-10-17 04:06] LABS: Hypochromia Slight; Microcytosis Slight; Platelet Estimate Decreased
[2021-10-17] MEDS ORDERED: SODIUM POLYSTYRENE SULFATE 15 GM/60 ML BOTTLE PO ONE (04:12)
[2021-10-17] MEDS: fentaNYL INJ 1,250 MCG in SODIUM CHLORIDE 0.9% 225 ML IV PRN ×3 (05:28→16:45)
[2021-10-17] MEDS: BUDESONIDE 0.5 MG/2 ML NEB RESP TX SCH ×2 (07:46→19:14)
[2021-10-17] MEDS: guaiFENesin/DM ER 600-30 MG TABLET PO SCH ×2 (08:21→20:03)
[2021-10-17] MEDS: ASPIRIN CHEW 81 MG TABLET PO SCH (08:21)
[2021-10-17] MEDS: DILTIAZEM 30 MG TABLET PO SCH ×2 (08:21→20:02)
[2021-10-17] MEDS: PANTOPRAZOLE 40 MG TABLET PO SCH (08:21)
[2021-10-17] MEDS: DOCUSATE SODIUM 100 MG CAPSULE PO SCH ×2 (08:21→20:03)
[2021-10-17] MEDS: NYSTATIN POWDER 15 GM BOTTLE TOP SCH ×2 (08:22→20:04)
[2021-10-17] MEDS: FLUTICASONE/SALMETEROL 250-50 DISKUS 14 DOSE INH SCH ×2 (08:22→20:03)
[2021-10-17] MEDS: METOPROLOL SUCCINATE XL 50 MG TABLET PO SCH (08:22)
[2021-10-17] MEDS: ESCITALOPRAM 10 MG TABLET PO SCH (08:22)
[2021-10-17] MEDS: MENTHOL/ZINC OXIDE OINT 71 GM JAR TOP SCH ×3 (08:22→20:04)
[2021-10-17] MEDS: NYSTATIN 500,000 UNIT/5 ML UDCUP SWISH/SWAL SCH ×4 (08:22→20:02)
[2021-10-17] MEDS: SODIUM CHLORIDE 0.65% NASAL SPRAY 45 ML BOTTLE BOTH NARES SCH ×4 (08:23→20:04)
[2021-10-17] MEDS ORDERED: FUROSEMIDE 40 MG/4 ML VIAL IV ONE (10:52)
[2021-10-17] MEDS: DEXAMETHASONE 4 MG/1 ML VIAL IV SCH ×2 (11:21→20:02)
[2021-10-17] MEDS: FONDAPARINUX 2.5 MG/0.5 ML SYRINGE SUBCUT SCH (11:38)
[2021-10-17] MEDS: MIDAZOLAM 100 MG in SODIUM CHLORIDE 0.9% 80 ML IV PRN (13:44)
[2021-10-17] MEDS: LEVOFLOXACIN INJ 750 MG/150 ML PREMIX IV SCH (15:07)
[2021-10-17] MEDS: FLUCONAZOLE INJ 200 MG/100 ML PREMIX IV SCH (15:07)
[2021-10-17] MEDS: TAMSULOSIN 0.4 MG CAPSULE PO SCH (20:02)
[2021-10-17] MEDS: PRAMIPEXOLE 0.25 MG TABLET PO SCH (20:03)
[2021-10-18] MEDS: ALBUTEROL/IPRATROPIUM 3 ML NEB RESP TX SCH ×4 (00:19→18:24)
[2021-10-18] MEDS: fentaNYL INJ 1,250 MCG in SODIUM CHLORIDE 0.9% 225 ML IV PRN ×6 (00:42→22:38)
[2021-10-18 03:18] LABS: ABG Base Excess 5.9 MMOL/L (-2.5-2.5); ABG HCO3 29.7 MMOL/L (20-26); ABG Oxygen Saturation 89.1 % (95-100); ABG PH 7.276 (7.35-7.45); ABG PO2 63.1 MM HG (80-95); ABG TCO2 32.6 MMOL/L (23-27)
[2021-10-18 03:21] LABS: ABG PCO2 74.4 MM HG (35-48)
[2021-10-18] MEDS: ACETAMINOPHEN 325 MG TABLET PO PRN (03:24)
[2021-10-18 03:27] LABS: Basophils % 0.1 % (0.0-0.8); Hematocrit 28.2 VOL% (42.0-52.0); Hemoglobin 8.6 GM/DL (14.0-18.0); Immature Granulocytes % 0.8 %; Lymphocytes # 0.2 10*3/uL (1.4-4.0); Lymphocytes % 1.7 % (21.2-54.2); Mean Corpuscular HGB Conc 30.5 GM/DL (32-36); Mean Corpuscular Volume 100.4 FL (87-102); Mean Platelet Volume 13.3 FL (9.6-12.0); Monocytes % 2.1 % (1.7-12.7); Neutrophils % 95.3 % (38.7-73.9); Platelet Count 47 T/CUMM (130-400); Red Blood Count 2.81 MC/CUMM (3.8-5.5); Red Cell Distribution Width 14.4 % (9.3-17.3); White Blood Count 12.5 T/CUMM (4-12)
[2021-10-18 03:38] LABS: Alanine Aminotransferase 27 U/L (16-61); Albumin 1.4 G/DL (3.4-5.0); Alkaline Phosphatase 99 U/L (45-117); Aspartate Amino Transferase 28 U/L (0-37); Bilirubin,Total < 0.39 MG/DL (0.20-1.00); Blood Urea Nitrogen 55 MG/DL (7-18); Calcium 7.7 MG/DL (8.5-10.1); Carbon Dioxide 34 MMOL/L (21-32); Estimated Glom Filtration Rate 98 ML/MIN; Glucose 199 MG/DL (74-106); Osmolality,Calculated 314.3 MOS/KG (273-304); Potassium 5.8 MMOL/L (3.5-5.1); Sodium 148 MMOL/L (136-145); Total Protein 4.2 G/DL (6.4-8.2)
[2021-10-18 03:52] LABS: Hypochromia 1+; Lymphocytes 2 % (20-55); Microcytosis 1+; Platelet Estimate Decreased; Segmented Neutrophils 96 % (50-85); Total Cells Counted 100
[2021-10-18] MEDS ORDERED: SODIUM POLYSTYRENE SULFATE 15 GM/60 ML BOTTLE PO ONE (04:11)
[2021-10-18] MEDS: ROCURONIUM 500 MG in SODIUM CHLORIDE 0.9% 500 ML IV PRN ×2 (05:35→17:20)
[2021-10-18] MEDS: BUDESONIDE 0.5 MG/2 ML NEB RESP TX SCH ×2 (07:26→18:24)
[2021-10-18] MEDS: MIDAZOLAM 100 MG in SODIUM CHLORIDE 0.9% 80 ML IV PRN ×2 (08:10→22:02)
[2021-10-18] MEDS: FLUTICASONE/SALMETEROL 250-50 DISKUS 14 DOSE INH SCH ×2 (08:39→20:06)
[2021-10-18] MEDS: METOPROLOL SUCCINATE XL 50 MG TABLET PO SCH (08:45)
[2021-10-18] MEDS: ASPIRIN CHEW 81 MG TABLET PO SCH (09:07)
[2021-10-18] MEDS: DILTIAZEM 30 MG TABLET PO SCH ×2 (09:07→20:05)
[2021-10-18] MEDS: ESCITALOPRAM 10 MG TABLET PO SCH (09:07)
[2021-10-18] MEDS: guaiFENesin/DM ER 600-30 MG TABLET PO SCH ×2 (09:07→20:05)
[2021-10-18] MEDS: DOCUSATE SODIUM 100 MG CAPSULE PO SCH ×2 (09:08→20:05)
[2021-10-18] MEDS: PANTOPRAZOLE 40 MG TABLET PO SCH (09:08)
[2021-10-18] MEDS: NYSTATIN 500,000 UNIT/5 ML UDCUP SWISH/SWAL SCH ×4 (09:08→20:04)
[2021-10-18] MEDS: DEXAMETHASONE 4 MG/1 ML VIAL IV SCH ×2 (09:25→20:04)
[2021-10-18] MEDS: SODIUM CHLORIDE 0.65% NASAL SPRAY 45 ML BOTTLE BOTH NARES SCH ×4 (09:31→20:02)
[2021-10-18] MEDS: MENTHOL/ZINC OXIDE OINT 71 GM JAR TOP SCH ×3 (09:36→20:03)
[2021-10-18] MEDS: NYSTATIN POWDER 15 GM BOTTLE TOP SCH ×2 (09:36→20:02)
[2021-10-18] MEDS: ALBUMIN 25% 12.5 GM/50 ML VIAL IV SCH ×2 (11:30→18:08)
[2021-10-18] MEDS: FONDAPARINUX 2.5 MG/0.5 ML SYRINGE SUBCUT SCH (12:18)
[2021-10-18] MEDS: CLINDAMYCIN INJ 600 MG/50 ML PREMIX IV SCH ×2 (13:35→20:03)
[2021-10-18] MEDS: LEVOFLOXACIN INJ 750 MG/150 ML PREMIX IV SCH (14:45)
[2021-10-18] MEDS: PRIMAQUINE PHOSPHATE 26.3 MG TABLET PO SCH (14:46)
[2021-10-18] MEDS: FLUCONAZOLE INJ 200 MG/100 ML PREMIX IV SCH (16:20)
[2021-10-18 17:35] LABS: ABG Base Excess 3.1 MMOL/L (-2.5-2.5); ABG HCO3 30.8 MMOL/L (20-26); ABG Oxygen Saturation 86.7 % (95-100); ABG PCO2 67.2 MM HG (35-48); ABG PH 7.279 (7.35-7.45); ABG PO2 59.4 MM HG (80-95); ABG TCO2 32.9 MMOL/L (23-27)
[2021-10-18] MEDS: TAMSULOSIN 0.4 MG CAPSULE PO SCH (20:05)
[2021-10-18] MEDS: PRAMIPEXOLE 0.25 MG TABLET PO SCH (20:05)
[2021-10-19] MEDS: ALBUTEROL/IPRATROPIUM 3 ML NEB RESP TX SCH ×4 (01:30→19:32)
[2021-10-19] MEDS: ALBUMIN 25% 12.5 GM/50 ML VIAL IV SCH ×3 (01:53→17:58)
[2021-10-19] MEDS: fentaNYL INJ 1,250 MCG in SODIUM CHLORIDE 0.9% 225 ML IV PRN (03:00)
[2021-10-19 03:34] LABS: ABG Base Excess 3.9 MMOL/L (-2.5-2.5); ABG HCO3 27.7 MMOL/L (20-26); ABG PO2 59.9 MM HG (80-95); ABG TCO2 30.5 MMOL/L (23-27)
[2021-10-19 03:39] LABS: Basophils % 0.1 % (0.0-0.8); Hematocrit 28.6 VOL% (42.0-52.0); Hemoglobin 8.4 GM/DL (14.0-18.0); Immature Granulocytes % 1.3 %; Immature Granulocytes Absolute 0.15 #; Lymphocytes # 0.3 10*3/uL (1.4-4.0); Lymphocytes % 2.3 % (21.2-54.2); Mean Corpuscular HGB Conc 29.4 GM/DL (32-36); Mean Corpuscular Volume 102.5 FL (87-102); Mean Platelet Volume 13.7 FL (9.6-12.0); Monocytes % 2.5 % (1.7-12.7); Neutrophils % 93.8 % (38.7-73.9); Platelet Count 41 T/CUMM (130-400); Red Blood Count 2.79 MC/CUMM (3.8-5.5); Red Cell Distribution Width 14.2 % (9.3-17.3); White Blood Count 11.6 T/CUMM (4-12)
[2021-10-19 03:44] LABS: ABG PCO2 70.5 MM HG (35-48)
[2021-10-19 03:55] LABS: Bilirubin,Total 0.4 MG/DL (0.20-1.00); Calcium 8.1 MG/DL (8.5-10.1); Potassium 5.2 MMOL/L (3.5-5.1); Total Protein 4.6 G/DL (6.4-8.2)
[2021-10-19 03:59] LABS: Band Neutrophils 1 % (0-10); Lymphocytes 1 % (20-55); Segmented Neutrophils 93 % (50-85); Total Cells Counted 100
[2021-10-19 04:00] LABS: Hypochromia 1+; Microcytosis 1+; Platelet Estimate Decreased
[2021-10-19 04:02] LABS: Osmolality,Calculated 313.7 MOS/KG (273-304)
[2021-10-19] MEDS: CLINDAMYCIN INJ 600 MG/50 ML PREMIX IV SCH ×3 (04:07→20:28)
[2021-10-19] MEDS: BUDESONIDE 0.5 MG/2 ML NEB RESP TX SCH ×2 (08:35→19:32)
[2021-10-19] MEDS ORDERED: PANTOPRAZOLE 40 MG VIAL IV SCH (09:00)
[2021-10-19] MEDS: DEXAMETHASONE 4 MG/1 ML VIAL IV SCH ×2 (09:32→20:31)
[2021-10-19] MEDS: ESCITALOPRAM 10 MG TABLET PO SCH (09:32)
[2021-10-19] MEDS: guaiFENesin/DM ER 600-30 MG TABLET PO SCH ×2 (09:32→20:29)
[2021-10-19] MEDS: ASPIRIN CHEW 81 MG TABLET PO SCH (09:32)
[2021-10-19] MEDS: DILTIAZEM 30 MG TABLET PO SCH ×2 (09:32→20:29)
[2021-10-19] MEDS: NYSTATIN 500,000 UNIT/5 ML UDCUP SWISH/SWAL SCH ×4 (09:32→20:29)
[2021-10-19] MEDS: PRIMAQUINE PHOSPHATE 26.3 MG TABLET PO SCH (09:32)
[2021-10-19] MEDS: DOCUSATE SODIUM 100 MG CAPSULE PO SCH ×2 (09:32→20:29)
[2021-10-19] MEDS: MENTHOL/ZINC OXIDE OINT 71 GM JAR TOP SCH ×3 (09:33→20:30)
[2021-10-19] MEDS: NYSTATIN POWDER 15 GM BOTTLE TOP SCH ×2 (09:34→20:30)
[2021-10-19] MEDS: SODIUM CHLORIDE 0.65% NASAL SPRAY 45 ML BOTTLE BOTH NARES SCH ×4 (09:34→20:30)
[2021-10-19] MEDS: METOPROLOL SUCCINATE XL 50 MG TABLET PO SCH (09:35)
[2021-10-19] MEDS: FONDAPARINUX 2.5 MG/0.5 ML SYRINGE SUBCUT SCH (12:05)
[2021-10-19] MEDS: INSULIN LISPRO 100 UNIT/ML SUBCUT SCH ×2 (12:05→18:01)
[2021-10-19] MEDS: FLUTICASONE/SALMETEROL 250-50 DISKUS 14 DOSE INH SCH ×3 (12:07→21:01)
[2021-10-19] MEDS: LEVOFLOXACIN INJ 750 MG/150 ML PREMIX IV SCH (17:58)
[2021-10-19] MEDS: TAMSULOSIN 0.4 MG CAPSULE PO SCH (20:28)
[2021-10-19] MEDS: PRAMIPEXOLE 0.25 MG TABLET PO SCH (20:29)
[2021-10-19 20:31] VITALS: BP 123/61
[2021-10-19] MEDS: PHENYLEPHRINE DRIP 40 MG/250 ML PREMIX IV PRN (21:10)
[2021-10-20] MEDS: INSULIN LISPRO 100 UNIT/ML SUBCUT SCH ×2 (00:30→05:55)
[2021-10-20] MEDS: ALBUTEROL/IPRATROPIUM 3 ML NEB RESP TX SCH ×2 (01:47→09:44)
[2021-10-20] MEDS: ALBUMIN 25% 12.5 GM/50 ML VIAL IV SCH (02:25)
[2021-10-20 04:45] LABS: ABG Base Excess -0.4 MMOL/L (-2.5-2.5); ABG HCO3 23.9 MMOL/L (20-26); ABG Oxygen Saturation 84.3 % (95-100); ABG PO2 62.3 MM HG (80-95); ABG TCO2 28.4 MMOL/L (23-27)
[2021-10-20 04:49] LABS: Basophils # 0.1 10*3/uL (0.0-0.2); Basophils % 0.4 % (0.0-0.8); Hematocrit 33.5 VOL% (42.0-52.0); Immature Granulocytes % 4.4 %; Immature Granulocytes Absolute 0.98 #; Lymphocytes # 0.4 10*3/uL (1.4-4.0); Lymphocytes % 1.9 % (21.2-54.2); Mean Corpuscular HGB Conc 30.1 GM/DL (32-36); Mean Corpuscular Volume 98.8 FL (87-102); Monocytes % 3.6 % (1.7-12.7); NRBC # 0.22 10*3/uL; Neutrophils % 89.7 % (38.7-73.9); Red Cell Distribution Width 14.6 % (9.3-17.3)
[2021-10-20 04:53] LABS: Hemoglobin 10.1 GM/DL (14.0-18.0); Platelet Count 53 T/CUMM (130-400); Red Blood Count 3.39 MC/CUMM (3.8-5.5); White Blood Count 22.1 T/CUMM (4-12)
[2021-10-20 04:59] LABS: ABG PCO2 80.6 MM HG (35-48); ABG PH 7.181 (7.35-7.45)
[2021-10-20 05:09] LABS: Calcium 8.6 MG/DL (8.5-10.1); Osmolality,Calculated 318.1 MOS/KG (273-304); Potassium 5.3 MMOL/L (3.5-5.1)
[2021-10-20 05:14] LABS: Band Neutrophils 1 % (0-10); Lymphocytes 2 % (20-55); Nucleated Red Blood Cells 3 (0-5); Segmented Neutrophils 95 % (50-85); Total Cells Counted 100
[2021-10-20 05:15] LABS: Anisocytosis 1+; Microcytosis 1+; Ovalocytes Slight; Platelet Estimate Decreased
[2021-10-20] MEDS: CLINDAMYCIN INJ 600 MG/50 ML PREMIX IV SCH (05:55)
[2021-10-20] MEDS ORDERED: SODIUM BICARBONATE 50 MEQ/50 ML VIAL IV ONE ×2 (06:29)
[2021-10-20] MEDS ORDERED: EPINEPHrine 1 MG/10 ML SYRINGE IV ONE (06:35)
[2021-10-20] MEDS ORDERED: CALCIUM CHLORIDE 1,000 MG/10 ML SYRINGE IV ONE (06:36)
[2021-10-20 07:53] LABS: ABG Base Excess 1.5 MMOL/L (-2.5-2.5); ABG HCO3 25.4 MMOL/L (20-26); ABG Oxygen Saturation 79.4 % (95-100); ABG PO2 55.9 MM HG (80-95); ABG TCO2 30.2 MMOL/L (23-27)
[2021-10-20 08:00] LABS: ABG PCO2 83.4 MM HG (35-48); ABG PH 7.191 (7.35-7.45)
[2021-10-20] MEDS: PHENYLEPHRINE DRIP 40 MG/250 ML PREMIX IV PRN (08:57)
[2021-10-20] MEDS ORDERED: DOCUSATE SODIUM 100 MG/10 ML UDCUP PO SCH (09:00)
[2021-10-20] MEDS ORDERED: LORazepam 2 MG/1 ML VIAL IV ONE (09:04)
[2021-10-20] MEDS ORDERED: MORPHINE 2 MG/1 ML SYRINGE IV ONE (09:04)
[2021-10-20] MEDS ORDERED: MORPHINE 2 MG/1 ML SYRINGE ONE (09:12)
[2021-10-20] MEDS ORDERED: LORazepam 2 MG/1 ML VIAL ONE (09:12)
[2021-10-20] MEDS: BUDESONIDE 0.5 MG/2 ML NEB RESP TX SCH (09:44)
== END 2021-10-20 09:24 | disposition expired | DRG 207 ==
LOC: N.ED 20:50 → N.EDINP 09-27 03:28 → SUATTDRO 09-27 03:28 → N.5E 09-27 10:47 → N.ICU 09-29 11:26 → N.3E 10-01 20:54 → N.CC 10-13 15:18
PROVIDERS: ADMIT Internal Medicine; ATTEND Internal Medicine